=== PATIENT | male | born 1990 | race Caucasian/White ===

== ENCOUNTER 2018-12-07 11:39 | Inpatient (IN) | payer OTHER ==
[2018-12-07 12:15] VITALS: BMI 33.7
--- NOTE | 2018-12-07 13:05 | HP ---
COWS - Scale Resting Pulse: 2= [place] 101-120 Sweatin=Flushed/Facial Moisture Restless Observation: 1= Difficult to Sit Still Pupil Size: 0= Normal to Room Light Bone or Joint Aches: 2= Severe Diffuse Aches Runny Nose/ Eye Tearin= None GI Upset > 30mins: 0= None Tremor Observation: 0= None Yawning Observation: 0= None Anxiety or Irritability: 2=Irritable/Anxious Goose Flesh Skin: 0=Smooth Skin COWS Score: 9 CIWA Score Nausea/Vomitin-Mild Nausea/No Vomiting Muscle Tremors: 1-None Visible, but [place] Anxiety: 3 Agitation: 3 Paroxysmal Sweats: 2 Orientation: 0-Oriented Tacttile Disturbances: 0-None Auditory Disturbances: 0-None Visual Disturbances: 0-None Headache: 3-Moderate CIWA-Ar Total Score: 13 - Admission Criteria OASAS Guidelines: Admission for Medically Managed Detox: Requires at least one of the followin. CIWA greater than 12 2. Seizures within the past 24 hours 3. Delirium tremens within the past 24 hours 4. Hallucinations within the past 24 hours 5. Acute intervention needed for co occurring medical disorder 6. Acute intervention needed for co occurring psychiatric disorder 7. Severe withdrawal that cannot be handled at a lower level of care (continued vomiting, continued diarrhea, abnormal vital signs) requiring intravenous medication and/or fluids 8. Admission ROS [facility] Chief Complaint: detox from benzo and opioids Allergies/Adverse Reactions: Allergies Allergy/AdvReac Type Severity Reaction Status Date / Time No Known Allergies Allergy Verified 12/15/18 16:59 History of Present Illness: 28M w/ pmh of depression(seroquel, vistril), anxiety, PTSD here for detox from opioid and benzodiazpenes. Takes up to 120mg of oxycodone, 6-8mg of xanax. Last xanax(2mg) and oxycodone(60mg) was ~0300. Opioids were initally prescribed for Right shoulder injury at ~22y/o. Took medications recreationally for a few months then quit. Opioid use recurrence after Right foot 2nd digit traumatic amputation. Gets drugs from friends. Has had trouble with police due to criminal mischief. Plans to take a plea in Mar 2019 and be on probation for 3ys. Has tried detox in the past year been on methadone(up to 120mg); was on suboxone ~10d prior but was discharged w/o plan in place. Started using again 1 week prior due to financial stressors. Smokes 5cigs/daily. Endorses desire to use nicotine gum. Drinks ~5alcoholic drinks daily, for several months, had one beer this morning. - Ebola screening Have you traveled outside of the country in the last 21 days: No (N) Have you had contact with anyone from an Ebola affected area: No Have you been sick,other than usual withdrawal symptoms: No Do you have a fever: No - Review of Systems EENT: denies: Blurred Vision, Double Vision, Nose Congestion, Difficulty Swallowing Respiratory: denies: Cough, Wheezing Cardiac: denies: Chest Pain, Lightheadedness, Palpitations GI: denies: Constipated, Diarrhea, Nausea, Vomiting : denies: Burning, Dysuria, Urgency Musculoskeletal: reports: Back Pain Neuro: reports: Headache (frontal). denies: Tremors, Dizziness Endocrine: reports: [place] Psychiatric: reports: Anxious Patient History - Patient Surgical History Hx Orthopedic Surgery: Yes (Right foot, 2nd digit amputation) - Smoking Cessation Smoking history: Current every day smoker Have you smoked in the past 12 months: Yes Aproximately how many cigarettes per day: 5 Initiated information on smoking cessation: No - Substance & Tx. History Hx Alcohol Use: Yes (5 beers/alcohols daily) - Substances abused Alcohol Substance route: Oral Frequency: Daily Amount used: pint of Cognac Age of first use: 19 Date of last use: 12/07/18 Oxycontin Substance route: Oral Frequency: Daily Amount used: 120 mg Age of first use: 22 Date of last use: 12/06/18 Non-Rx Methadone Substance route: Oral Frequency: Daily Amount used: 110 mg Age of first use: 26 Date of last use: 12/04/18 Family Disease History - Family Disease History Other Family History: no significant contributory FH Admission Physical Exam S - Vital Signs Vital Signs: Vital Signs - 24 hr 12/07/18 12:02 Temperature 98.0 F Pulse Rate 106 H Respiratory 20 Rate Blood Pressure 141/92 - Physical General Appearance: Yes: Moderate Distress, Sweating (flushed with light perspiration), Anxious. No: Tremorous HEENTM: Yes: Within Normal Limits. No: Pale Conjunctivae R, Pale Conjunctivae L , Scleral Ictenus R, Scleral Ictenus L, Microcephalic Respiratory: Yes: Within Normal Limits, Lungs Clear. No: Chest Non-Tender, Decreased Breath Sounds, Labored Respiration, No Accessory Muscle Use Neck: Yes: Within Normal Limits, Supple, Trachea in good position Cardiology: Yes: Regular Rhythm, S1, S2, Tachycardia Abdominal: Yes: Non Tender, Soft. No: Guarding, Rebound, Tenderness, Surgical Scar Back: No: Vertebral Tenderness Musculoskeletal: Yes: full range of Motion Extremities: Yes: Other (Right foot, 2nd digit s/p amputation with healed scar) Neurological: Yes: Fully Oriented, Alert Integumentary: Yes: Dry, Warm Cleared for Admission [facility] - Detox or Rehab [facility] Level of Care: Medically Managed Detox Regimen/Protocol: Clonidine/Valium, Methadone/Valium Claeared for Rehab Admission: No Breathalyzer - Breathalyzer Breathalyzer: 0 Urine Drug Screen - Test Device Lot number: [id number] Expiration date: 09/08/20 - Control Is test valid?: Yes - Results Drug screen NEGATIVE: No Urine drug screen results: THC-Marijuana, OXY-Oxycodone, BZO-Benzodiazepines Inpatient Rehab Admission - Rehab Decision to Admit Inpatient rehab admission?: No
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
[2018-12-07] MEDS ORDERED: BISMUTH SUBSALICYLATE 262 MG/15 ML BTL PO PRN (13:55)
[2018-12-07] MEDS ORDERED: IBUPROFEN 400 MG TABLET (FP) PO PRN (13:55)
[2018-12-07] MEDS ORDERED: MAGNESIUM CITRATE 300 ML BOTTLE PO PRN (13:55)
[2018-12-07] MEDS ORDERED: MAGNESIUM HYDROX 2400MG/30ML ORAL SUSPENSION 30 ML CUP PO PRN (13:55)
[2018-12-07] MEDS ORDERED: ACETAMINOPHEN 325 MG TABLET (FP) PO PRN (13:55)
[2018-12-07] MEDS ORDERED: MENTHOL/PHENOL 1 EACH UD MM PRN (13:55)
[2018-12-07] MEDS ORDERED: MAG HYDROX/AL HYDROX/SIMETH 30 ML UNIT-DOSE CUP PO PRN (13:55)
[2018-12-07] MEDS ORDERED: METHADONE HCL 10 MG TABLET (FOR DETOX USE ONLY) PO ONE (13:57)
[2018-12-07] MEDS: diazePAM 5 MG TABLET PO SCH ×2 (15:24→22:10)
[2018-12-07] MEDS: cloNIDine HCL 0.1 MG TABLET PO PRN ×2 (15:24→22:09)
[2018-12-07] MEDS: diazePAM 5 MG TABLET PO PRN (17:59)
[2018-12-07] MEDS: METHOCARBAMOL 500 MG TABLET PO PRN (17:59)
[2018-12-07] MEDS: NICOTINE POLACRILEX 2 MG GUM BUC PRN (18:02)
[2018-12-07] MEDS: THIAMINE HCL 100 MG TABLET (FP) PO SCH (22:09)
[2018-12-07] MEDS: MELATONIN 5 MG TABLETS PO PRN (22:16)
[2018-12-08] MEDS: diazePAM 5 MG TABLET PO PRN ×3 (00:55→15:24)
[2018-12-08] MEDS: diazePAM 5 MG TABLET PO SCH ×3 (05:44→22:07)
[2018-12-08] MEDS ORDERED: METHADONE HCL 10 MG TABLET (FOR DETOX USE ONLY) PO ONE ×2 (08:27→08:36)
[2018-12-08] MEDS ORDERED: cloNIDine HCL 0.1 MG TABLET PO PRN (08:36)
[2018-12-08] MEDS: PRENATAL VITAMINS W/ FOLIC ACID TABLET (FP) PO SCH (09:13)
[2018-12-08] MEDS: NICOTINE POLACRILEX 2 MG GUM BUC PRN ×4 (09:14→22:09)
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
[2018-12-08 09:57] LABS: HEMOGLOBIN 15.5 GM/dL (11.7-16.9); MCH 29.7 pg (25.7-33.7); MCHC 33.6 g/dl (32.0-35.9); MEAN CELL VOLUME 88.4 fl (80-96); MEAN PLT VOLUME 11.9 fl (7.5-11.1); PLATELET COUNT 289 K/MM3 (134-434); RDW 13.6 % (11.9-15.9); WHITE BLOOD COUNT 8.2 K/mm3 (4.0-10.0)
[2018-12-08] MEDS ORDERED: METHADONE HCL 5 MG TABLET (FOR DETOX USE ONLY) PO ONE (10:00)
[2018-12-08 10:06] LABS: ALBUMIN 4.5 g/dl (3.4-5.0); BILIRUBIN,TOTAL 0.4 mg/dL (0.2-1); BLOOD UREA NITROGEN 12.7 mg/dL (7-18); CALCIUM 9.6 mg/dL (8.5-10.1); CREATININE 1.2 mg/dL (0.55-1.3); POTASSIUM 4.4 mmol/L (3.5-5.1); TOT PROT 7.9 g/dl (6.4-8.2)
[2018-12-08] MEDS: SERTRALINE HCL 50 MG TABLET (FP) PO SCH (10:39)
--- NOTE | 2018-12-08 12:44 | PN ---
[facility] CIWA - CIWA Score Nausea/Vomitin-No Nausea/No Vomiting Muscle Tremors: 3 Anxiety: 3 Agitation: 4-Moderately Restless Paroxysmal Sweats: 3 Orientation: 0-Oriented Tacttile Disturbances: 0-None Auditory Disturbances: 0-None Visual Disturbances: 0-None Headache: 0-None Present CIWA-Ar Total Score: 13 BHS COWS - Scale Resting Pulse: 1= [place] 81-100 Sweatin=Flushed/Facial Moisture Restless Observation: 1= Difficult to Sit Still Pupil Size: 0= Normal to Room Light Bone or Joint Aches: 2= Severe Diffuse Aches Runny Nose/ Eye Tearin= Runny Nose/Eyes GI Upset > 30mins: 1= Stomach Cramp Tremor Observation of Outstretched Hands: 2= Slight Tremor Visible Yawning Observation: 2= >3x During Session Anxiety or Irritability: 2=Irritable/Anxious Goose Flesh Skin: 0=Smooth Skin COWS Score: 15 BHS Progress Note (SOAP) Subjective: irritable agitation anxiety sweats restless chills interrupted sleep body aches Objective: 12/08/18 12:43 Vital Signs Temperature 97.5 F L 12/08/18 12:38 Pulse Rate 80 12/08/18 12:38 Respiratory Rate 18 12/08/18 12:38 Blood Pressure 96/61 12/08/18 12:38 O2 Sat by Pulse Oximetry (%) Laboratory Tests 12/08/18 12/08/18 12/08/18 07:30 07:30 07:30 WBC 8.2 RBC 5.20 Hgb 15.5 Hct 46.0 MCV 88.4 MCH 29.7 MCHC 33.6 RDW 13.6 Plt Count 289 MPV 11.9 H Sodium 137 Potassium 4.4 Chloride 101 Carbon Dioxide 28 Anion Gap 8 BUN 12.7 Creatinine 1.2 Est GFR (CKD-EPI)AfAm 96.15 Est GFR (CKD-EPI)NonAf 82.96 Random Glucose 65 L Calcium 9.6 Total Bilirubin 0.4 AST 12 L ALT 22 Alkaline Phosphatase 118 H Total Protein 7.9 Albumin 4.5 RPR Titer Nonreactive labs noted aaox3 ambulating no acute distress Assessment: 12/08/18 12:43 withdrawal sx Plan: continue detox with a modified increase of his methadone taper. pt in agreement increase fluids
[2018-12-08] MEDS: QUEtiapine FUMARATE 300 MG TABLET PO SCH (22:07)
[2018-12-08] MEDS: THIAMINE HCL 100 MG TABLET (FP) PO SCH (22:07)
[2018-12-09] MEDS: diazePAM 5 MG TABLET PO SCH ×2 (06:03→17:30)
[2018-12-09] MEDS: diazePAM 5 MG TABLET PO PRN ×3 (08:39→19:35)
[2018-12-09] MEDS ORDERED: METHADONE HCL 10 MG TABLET (FOR DETOX USE ONLY) ONE (09:35)
[2018-12-09] MEDS ORDERED: METHADONE HCL 5 MG TABLET (FOR DETOX USE ONLY) ONE (09:35)
[2018-12-09] MEDS ORDERED: METHADONE HCL 10 MG TABLET (FOR DETOX USE ONLY) PO ONE (10:00)
[2018-12-09] MEDS ORDERED: METHADONE (DETOX) 20 MG, METHADONE (DETOX) 5 MG PO ONE ×2 (10:00)
[2018-12-09] MEDS: PRENATAL VITAMINS W/ FOLIC ACID TABLET (FP) PO SCH (10:30)
[2018-12-09] MEDS: SERTRALINE HCL 50 MG TABLET (FP) PO SCH (10:30)
[2018-12-09] MEDS: cloNIDine HCL 0.1 MG TABLET PO PRN ×2 (10:41→16:39)
--- NOTE | 2018-12-09 10:55 | PN ---
S CIWA - CIWA Score Nausea/Vomitin-No Nausea/No Vomiting Muscle Tremors: 2 Anxiety: 3 Agitation: 2 Paroxysmal Sweats: 3 Orientation: 0-Oriented Tacttile Disturbances: 0-None Auditory Disturbances: 0-None Visual Disturbances: 0-None Headache: 0-None Present CIWA-Ar Total Score: 10 S COWS - Scale Resting Pulse: 0= [place] 80 or Below Sweatin= Beads of Sweat on Face Restless Observation: 1= Difficult to Sit Still Pupil Size: 0= Normal to Room Light Bone or Joint Aches: 2= Severe Diffuse Aches Runny Nose/ Eye Tearin= None GI Upset > 30mins: 0= None Tremor Observation of Outstretched Hands: 2= Slight Tremor Visible Yawning Observation: 1= 1-2x During Session Anxiety or Irritability: 2=Irritable/Anxious Goose Flesh Skin: 0=Smooth Skin COWS Score: 11 S Progress Note (SOAP) Subjective: c/o sweats, anxiety, headache, mild shakes, and interrupted sleep. Objective: 12/09/18 10:54 Vital Signs 12/09/18 12/09/18 12/09/18 03:30 07:14 09:43 Temperature 97.3 F L 97.5 F L Pulse Rate 61 79 Respiratory 18 18 18 Rate Blood Pressure 117/79 134/78 Lab Results WBC 8.2 K/mm3 (4.0-10.0) 12/08/18 07:30 RBC 5.20 M/mm3 (4.00-5.60) 12/08/18 07:30 Hgb 15.5 GM/dL (11.7-16.9) 12/08/18 07:30 Hct 46.0 % (35.4-49) 12/08/18 07:30 MCV 88.4 fl (80-96) 12/08/18 07:30 MCHC 33.6 g/dl (32.0-35.9) 12/08/18 07:30 RDW 13.6 % (11.9-15.9) 12/08/18 07:30 Plt Count 289 K/MM3 (134-434) 12/08/18 07:30 Sodium 137 mmol/L (136-145) 12/08/18 07:30 Potassium 4.4 mmol/L (3.5-5.1) 12/08/18 07:30 Chloride 101 mmol/L (98-107) 12/08/18 07:30 Carbon Dioxide 28 mmol/L (21-32) 12/08/18 07:30 Anion Gap 8 MMOL/L (8-16) 12/08/18 07:30 BUN 12.7 mg/dL (7-18) 12/08/18 07:30 Creatinine 1.2 mg/dL (0.55-1.3) 12/08/18 07:30 Random Glucose 65 mg/dL (74-106) L 12/08/18 07:30 Calcium 9.6 mg/dL (8.5-10.1) 12/08/18 07:30 Labs noted. Assessment: 12/09/18 10:54 AOX3, in no acute respiratory distress. Full ROM, ambulating in the unit. Mild withdrawal symptoms. Plan: continue detox.
[2018-12-09] MEDS: NICOTINE POLACRILEX 2 MG GUM BUC PRN ×3 (14:21→22:01)
[2018-12-09] MEDS ORDERED: COLLOIDAL OATMEAL 1 BAR EACH TP PRN (18:06)
[2018-12-09] MEDS: hydrOXYzine PAMOATE 25 MG CAPSULE (FP) PO PRN (19:35)
[2018-12-09] MEDS: THIAMINE HCL 100 MG TABLET (FP) PO SCH (22:00)
[2018-12-09] MEDS: QUEtiapine FUMARATE 300 MG TABLET PO SCH (22:00)
[2018-12-09] MEDS: ACETAMINOPHEN 325 MG TABLET (FP) PO PRN (22:13)
[2018-12-10] MEDS ORDERED: diazePAM 5 MG TABLET PO ONE (06:00)
[2018-12-10] MEDS ORDERED: METHADONE HCL 5 MG TABLET (FOR DETOX USE ONLY) PO ONE (06:00)
[2018-12-10] MEDS: diazePAM 5 MG TABLET PO PRN ×4 (07:28→20:21)
[2018-12-10] MEDS ORDERED: METHADONE HCL 10 MG TABLET (FOR DETOX USE ONLY) PO ONE ×2 (10:00)
[2018-12-10] MEDS: SERTRALINE HCL 50 MG TABLET (FP) PO SCH (10:05)
[2018-12-10] MEDS: PRENATAL VITAMINS W/ FOLIC ACID TABLET (FP) PO SCH (10:05)
[2018-12-10] MEDS: NICOTINE POLACRILEX 2 MG GUM BUC PRN ×2 (10:25→20:24)
[2018-12-10] MEDS: cloNIDine HCL 0.1 MG TABLET PO PRN ×2 (12:52→22:01)
--- NOTE | 2018-12-10 15:53 | PN ---
S CIWA - CIWA Score Nausea/Vomitin-No Nausea/No Vomiting Muscle Tremors: 2 Anxiety: 2 Agitation: 2 Paroxysmal Sweats: 2 Orientation: 0-Oriented Tacttile Disturbances: 0-None Auditory Disturbances: 0-None Visual Disturbances: 0-None Headache: 0-None Present CIWA-Ar Total Score: 8 BHS COWS - Scale Resting Pulse: 1= [place] 81-100 Sweatin= No chills or Flushing Restless Observation: 3= Extraneous Movement Pupil Size: 0= Normal to Room Light Bone or Joint Aches: 1= Mild Discomfort Runny Nose/ Eye Tearin= None GI Upset > 30mins: 1= Stomach Cramp Tremor Observation of Outstretched Hands: 2= Slight Tremor Visible Yawning Observation: 0= None Anxiety or Irritability: 1=Feels Anxious/Irritable Goose Flesh Skin: 0=Smooth Skin COWS Score: 9 BHS Progress Note (SOAP) Subjective: Headache, body ache, increased yawning, teary eyes, not feeling good because too much withdrawal symptoms and was doing lots of drugs before coming here and the prn was helping but it stopped. Patient requesting increased detox protocol. Objective: 12/10/18 15:52 Last Vital Signs Temp Pulse Resp BP Pulse Ox 98.2 F 103 H 18 138/85 12/10/18 13:47 12/10/18 13:47 12/10/18 13:47 12/10/18 13:47 Elevated b/p 138/85 (denies htn; most likely r/t withdrawal) Laboratory Tests 12/08/18 12/08/18 12/08/18 07:30 07:30 07:30 WBC 8.2 RBC 5.20 Hgb 15.5 Hct 46.0 MCV 88.4 MCH 29.7 MCHC 33.6 RDW 13.6 Plt Count 289 MPV 11.9 H Sodium 137 Potassium 4.4 Chloride 101 Carbon Dioxide 28 Anion Gap 8 BUN 12.7 Creatinine 1.2 Est GFR (CKD-EPI)AfAm 96.15 Est GFR (CKD-EPI)NonAf 82.96 Random Glucose 65 L Calcium 9.6 Total Bilirubin 0.4 AST 12 L ALT 22 Alkaline Phosphatase 118 H Total Protein 7.9 Albumin 4.5 RPR Titer Nonreactive Labs reviewed Assessment: 12/10/18 15:53 Withdrawal sxs Plan: Continue detox Encouraged PO water intake Valium 5mg PO x 1 dose tomorrow (for an additional day, last dose was today) Valium 10mg PO q4hr prn extended for one more day Continue to monitor Elevated b/p: continue clonidine prn
[2018-12-10] MEDS: METHOCARBAMOL 500 MG TABLET PO PRN (18:49)
[2018-12-10] MEDS: hydrOXYzine PAMOATE 25 MG CAPSULE (FP) PO PRN (18:50)
[2018-12-10] MEDS: MELATONIN 5 MG TABLETS PO PRN (22:01)
[2018-12-10] MEDS: THIAMINE HCL 100 MG TABLET (FP) PO SCH (22:01)
[2018-12-10] MEDS: QUEtiapine FUMARATE 300 MG TABLET PO SCH (22:02)
[2018-12-11] MEDS: diazePAM 5 MG TABLET PO PRN ×2 (06:10→11:43)
[2018-12-11] MEDS: NICOTINE POLACRILEX 2 MG GUM BUC PRN ×6 (06:12→22:14)
[2018-12-11] MEDS ORDERED: METHADONE HCL 5 MG TABLET (FOR DETOX USE ONLY) ONE (09:38)
[2018-12-11] MEDS ORDERED: METHADONE HCL 10 MG TABLET (FOR DETOX USE ONLY) ONE (09:38)
[2018-12-11] MEDS ORDERED: diazePAM 5 MG TABLET PO ONE (10:00)
[2018-12-11] MEDS ORDERED: METHADONE (DETOX) 10 MG, METHADONE (DETOX) 5 MG PO ONE ×2 (10:00)
[2018-12-11] MEDS: METHOCARBAMOL 500 MG TABLET PO PRN ×2 (10:13→17:04)
[2018-12-11] MEDS: PRENATAL VITAMINS W/ FOLIC ACID TABLET (FP) PO SCH (10:13)
[2018-12-11] MEDS: SERTRALINE HCL 50 MG TABLET (FP) PO SCH (10:32)
[2018-12-11] MEDS ORDERED: IBUPROFEN 600 MG TABLET (FP) PO PRN (11:56)
--- NOTE | 2018-12-11 11:56 | PN ---
[facility] CIWA - CIWA Score Nausea/Vomitin-No Nausea/No Vomiting Muscle Tremors: 2 Anxiety: 2 Agitation: 2 Paroxysmal Sweats: No Perspiration Orientation: 0-Oriented Tacttile Disturbances: 0-None Auditory Disturbances: 0-None Visual Disturbances: 0-None Headache: 0-None Present CIWA-Ar Total Score: 6 S COWS - Scale Resting Pulse: 0= [place] 80 or Below Sweatin= Chills/Flushing Restless Observation: 0= Sits Still Pupil Size: 0= Normal to Room Light Bone or Joint Aches: 2= Severe Diffuse Aches Runny Nose/ Eye Tearin= None GI Upset > 30mins: 0= None Tremor Observation of Outstretched Hands: 0= None Yawning Observation: 0= None Anxiety or Irritability: 1=Feels Anxious/Irritable Goose Flesh Skin: 0=Smooth Skin COWS Score: 4 [facility] Progress Note (SOAP) Subjective: sweats anxiety interrupted sleep Objective: 12/11/18 11:55 Vital Signs Temperature 97.9 F 12/11/18 10:00 Pulse Rate 69 12/11/18 10:00 Respiratory Rate 18 12/11/18 10:00 Blood Pressure 115/59 L 12/11/18 10:00 O2 Sat by Pulse Oximetry (%) aaox3 ambulating no acute distress Assessment: 12/11/18 11:55 mild withdrawal sx Plan: continue detox increase fluids visitril 25mg prn
[2018-12-11] MEDS: hydrOXYzine PAMOATE 25 MG CAPSULE (FP) PO PRN ×2 (14:59→22:13)
[2018-12-11] MEDS: ACETAMINOPHEN 325 MG TABLET (FP) PO PRN (17:04)
--- NOTE | 2018-12-11 18:51 | PN ---
Psychiatric Progress Note Vital Signs: Vital Signs Period Temp Pulse Resp BP Sys/Haney Pulse Ox Last 24 Hr 97.3 F-98.8 F 59-96 18-20 104-142/53-85 Date of Session: 12/11/18 Chief Complaint:: " I am withdrawing from benzos. My dose needs to be adjusted. " HPI: Day 5 of detoxification. Patient has been admitted to [address] [place] [address] for a withdrawal syndrome (opioid, alcohol and benzodiazepine). Doing well except for sporadic breakthrough symptoms. Mr Bridges reports that he approached nursing staff with request for an adjustment of his benzodiazepine protocol. Psychiatric consult was sought in response to patient's escalating hostility. ROS: Unremarkable. Current Medications: Active Medications Generic Name Dose Route Start Last Admin Trade Name Freq PRN Reason Stop Dose Admin Acetaminophen 650 mg 12/07/18 13:55 12/11/18 17:04 Tylenol - PO 650 mg Q6H PRN Administration PAIN LEVEL 4 - 6 Acetaminophen 650 mg 12/07/18 13:55 Tylenol - PO Q6H PRN FEVER Al Hydroxide/Mg Hydroxide 30 ml 12/07/18 13:55 Mylanta Oral Suspension - PO Q6H PRN DYSPEPSIA Bismuth Subsalicylate 30 ml 12/07/18 13:55 Pepto-Bismol Liquid - PO Q1H PRN DIARRHEA Colloidal Oatmeal 1 applic 12/09/18 18:06 12/09/18 18:17 Aveeno Soap - TP 1 applic DAILY PRN Administration HYGEINE Eucalyptus/Menthol/Phenol/Sorbitol 1 each 12/07/18 13:55 Cepastat Lozenge - MM 12/13/18 13:55 Q4H PRN SORE THROAT Hydroxyzine Pamoate 25 mg 12/07/18 13:55 12/11/18 14:59 Vistaril - PO 12/13/18 13:55 25 mg Q6H PRN Administration For Anxiety Ibuprofen 600 mg 12/11/18 11:56 Motrin - PO Q6H PRN PAIN LEVEL 4 - 6 Magnesium Citrate 300 ml 12/07/18 13:55 Citroma - PO Q48H PRN CONSTIPATION Magnesium Hydroxide 30 ml 12/07/18 13:55 Milk Of Magnesia - PO PRN PRN CONSTIPATION Melatonin 5 mg 12/07/18 13:55 12/10/18 22:01 Melatonin PO 5 mg HS PRN Administration INSOMNIA Methadone HCl 5 mg 12/13/18 06:00 Dolophine - PO 12/13/18 06:01 ONCE@0600 ONE Methadone HCl 10 mg 12/12/18 10:00 Dolophine - PO 12/12/18 10:01 ONCE ONE Methocarbamol 500 mg 12/07/18 13:55 12/11/18 17:04 Robaxin - PO 12/13/18 13:55 500 mg Q6H PRN Administration MUSCLE SPASMS Nicotine Polacrilex 2 mg 12/07/18 13:55 12/11/18 17:33 Nicorette Gum - BUC 2 mg Q2H PRN Administration NICOTINE REPLACEMENT RX Multivit/Folic Acid/Iron 1 tab 12/08/18 10:00 12/11/18 10:13 Vitamins (Sjr) - PO 1 tab DAILY ANA Administration Quetiapine Fumarate 300 mg 12/08/18 22:00 12/10/18 22:02 Seroquel - PO 300 mg HS ANA Administration Sertraline HCl 100 mg 12/08/18 10:15 12/11/18 10:32 Zoloft - PO 100 mg DAILY ANA Administration Thiamine HCl 100 mg 12/07/18 22:00 12/10/18 22:01 Vitamin B1 - PO 100 mg HS ANA Administration u Medication(s) Change(s): No changes. No clinical justification. Current Side Effect: No Lab tests ordered: No Lab tests reviewed: Yes Provider note:: Chart reviewed. Dr Florez's consult note of 12/08/18 : appreciated. Met with the patient. Noted as calm, conversant, clear about his issues, moderately anxious and appropriate. Mr Bridges indicates that he " might need some doses of valium " to cover intermittent episodes of anxiety and he would like the doctors to address that issue. Patient expresses the feeling that his complaint was not validated and he got angry. " They behaved as if I was lying to get more medicine, that my complaint was not true. So, I got angry. " Patient was reassured by this filing writer. Detoxification protocol (opioid + benzodiazepine) was explained to the patient. Made aware that his medical issues (withdrawal) are taken seriously and that the medical attending will be contacted for management. Mr Bridges apologized for his behavior and promised that he will use a more mature approach to discuss his symptoms with the nursing staff. Patient is psychiatrically stable. Not a danger to self or others. Willing to continue his care at [facility] [address]. Baseline mental status. Discussed with nurses on duty. Total face to face time:: 35 Mental Status Exam - Mental Status Exam Alert and Oriented to: Time, Place, Person Cognitive Function: Good Patient Appearance: Well Groomed (obese, tattoos on chest, upper extremities) Mood: Angry (initially angry; calmed down after receiving explanation from this filing writer) Affect: Appropriate, Normal Range Patient Behavior: Appropriate (friendly), Cooperative Speech Pattern: Clear, Appropriate Voice Loudness: Normal Thought Process: Intact, Goal Oriented Thought Disorder: Not Present Hallucinations: Denies Suicidal Ideation: Denies Homicidal Ideation: Denies Insight/Judgement: Fair Sleep: Well Appetite: Good Muscle strength/Tone: Normal Gait/Station: Normal Psychiatric Treatment Plan - Problem List (1) Alcohol dependence, uncomplicated Current Visit: Yes Comment: . (2) Sedative, hypnotic or anxiolytic dependence, uncomplicated Current Visit: Yes Comment: . (3) Uncomplicated opioid dependence Current Visit: Yes Comment: . (4) Anxiety disorder Current Visit: Yes Comment: . (5) Nicotine dependence Current Visit: Yes Comment: . (6) PTSD (post-traumatic stress disorder) Current Visit: Yes Comment: .
--- NOTE | 2018-12-11 19:22 | PN ---
[facility] Progress Note Note: Vital Signs Temperature 97.7 F 12/11/18 17:20 Pulse Rate 96 H 12/11/18 17:20 Respiratory Rate 18 12/11/18 17:20 Blood Pressure 129/69 12/11/18 17:20 O2 Sat by Pulse Oximetry (%) Patient requested additional valium for withdrawal sx , benzo ramin d/c yesterday but received an additional dose today, patient methadone ramin extended for two additional days. Patient requested increase in zoloft dose from 100 mg qd to 100 mg BID. Patient had two psych consults during his detox stay and rec: xoloft 100 mg qd and seroquel 300 mg HS. Patient Aox3, no acute distress, full ROM, ambulating in the unit, very anxious and agitated during eval. Gabapentin 100 mg TID offered to managed withdrawal sx. Increase PO fluids continue to monitor
[2018-12-11] MEDS: QUEtiapine FUMARATE 300 MG TABLET PO SCH (22:11)
[2018-12-11] MEDS: GABAPENTIN 100 MG CAPSULE (FP) PO SCH (22:11)
[2018-12-11] MEDS: THIAMINE HCL 100 MG TABLET (FP) PO SCH (22:11)
[2018-12-11] MEDS: MELATONIN 5 MG TABLETS PO PRN (22:14)
[2018-12-12] MEDS: GABAPENTIN 100 MG CAPSULE (FP) PO SCH ×3 (05:17→22:01)
--- NOTE | 2018-12-12 09:13 | PN ---
[facility] CIWA - CIWA Score Nausea/Vomitin-No Nausea/No Vomiting Muscle Tremors: 2 Anxiety: 2 Agitation: 1-Slight > Activity Paroxysmal Sweats: 2 Orientation: 0-Oriented Tacttile Disturbances: 0-None Auditory Disturbances: 0-None Visual Disturbances: 0-None Headache: 0-None Present CIWA-Ar Total Score: 7 [facility] COWS - Scale Resting Pulse: 1= [place] 81-100 Sweatin= Chills/Flushing Restless Observation: 1= Difficult to Sit Still Pupil Size: 0= Normal to Room Light Bone or Joint Aches: 1= Mild Discomfort Runny Nose/ Eye Tearin= None GI Upset > 30mins: 0= None Tremor Observation of Outstretched Hands: 1= Tremor [place], Not Seen Yawning Observation: 0= None Anxiety or Irritability: 1=Feels Anxious/Irritable Goose Flesh Skin: 0=Smooth Skin COWS Score: 6 BHS Progress Note (SOAP) Subjective: anxiety sweats irritable interrupted sleep Objective: 12/12/18 09:12 Vital Signs Temperature 96.8 F L 12/12/18 06:00 Pulse Rate 74 12/12/18 06:00 Respiratory Rate 18 12/12/18 06:00 Blood Pressure 112/60 12/12/18 06:00 O2 Sat by Pulse Oximetry (%) pt is aaox3 ambulating no acute distress Assessment: 12/12/18 09:12 mild withdrawals Plan: continue detox increase fluids valium 10mg prn until tomorrow d/c in am
[2018-12-12] MEDS: SERTRALINE HCL 50 MG TABLET (FP) PO SCH (09:45)
[2018-12-12] MEDS: diazePAM 5 MG TABLET PO PRN ×3 (09:45→19:42)
[2018-12-12] MEDS: PRENATAL VITAMINS W/ FOLIC ACID TABLET (FP) PO SCH (09:45)
[2018-12-12] MEDS ORDERED: METHADONE HCL 10 MG TABLET (FOR DETOX USE ONLY) PO ONE ×2 (10:00)
[2018-12-12] MEDS: hydrOXYzine PAMOATE 25 MG CAPSULE (FP) PO PRN (12:37)
[2018-12-12] MEDS: NICOTINE POLACRILEX 4 MG GUM BUC PRN ×3 (12:38→22:03)
[2018-12-12] MEDS: METHOCARBAMOL 500 MG TABLET PO PRN (19:42)
[2018-12-12] MEDS: ACETAMINOPHEN 325 MG TABLET (FP) PO PRN (21:03)
[2018-12-12] MEDS: QUEtiapine FUMARATE 300 MG TABLET PO SCH (22:01)
[2018-12-12] MEDS: THIAMINE HCL 100 MG TABLET (FP) PO SCH (22:01)
[2018-12-13] MEDS: diazePAM 5 MG TABLET PO PRN ×2 (00:01→05:31)
[2018-12-13] MEDS: GABAPENTIN 100 MG CAPSULE (FP) PO SCH (05:29)
[2018-12-13] MEDS ORDERED: METHADONE HCL 5 MG TABLET (FOR DETOX USE ONLY) PO ONE ×2 (06:00)
[2018-12-13 09:12] VITALS: BP 121/76; PULSE 107; TEMP 98.2
[2018-12-13] MEDS: PRENATAL VITAMINS W/ FOLIC ACID TABLET (FP) PO SCH (09:15)
[2018-12-13] MEDS: SERTRALINE HCL 50 MG TABLET (FP) PO SCH (09:16)
--- NOTE | 2018-12-13 09:35 | DS ---
[facility] Detox Discharge Summary Admission Date: 12/07/18 Discharge Date: 12/13/18 - History Present History: Alcohol Dependence, Opioid Dependence, Sedative Dependence - Physical Exam Results Vital Signs: Vital Signs Temperature 98.2 F 12/13/18 09:11 Pulse Rate 107 H 12/13/18 09:11 Respiratory Rate 18 12/13/18 09:11 Blood Pressure 121/76 12/13/18 09:11 O2 Sat by Pulse Oximetry (%) Pertinent Admission Physical Exam Findings: pt arrived in withdrawal sx Laboratory Tests 12/08/18 12/08/18 12/08/18 07:30 07:30 07:30 WBC 8.2 RBC 5.20 Hgb 15.5 Hct 46.0 MCV 88.4 MCH 29.7 MCHC 33.6 RDW 13.6 Plt Count 289 MPV 11.9 H Sodium 137 Potassium 4.4 Chloride 101 Carbon Dioxide 28 Anion Gap 8 BUN 12.7 Creatinine 1.2 Est GFR (CKD-EPI)AfAm 96.15 Est GFR (CKD-EPI)NonAf 82.96 Random Glucose 65 L Calcium 9.6 Total Bilirubin 0.4 AST 12 L ALT 22 Alkaline Phosphatase 118 H Total Protein 7.9 Albumin 4.5 RPR Titer Nonreactive today pt is aaox3 ambulating no acute distress no s/s of withdrawals - Treatment Hospital Course: Detox Protocol Followed, Detoxed Safely, Responded well, Discharged Condition Good, Rehab Referral Accepted Patient has Accepted a Rehab Referral to: pt declined rehab; referral provided - Medication Discharge Medications: Ambulatory Orders Quetiapine Fumarate [Seroquel] 300 mg PO HS 12/07/18 hydrOXYzine PAMOATE [Vistaril -] 50 mg PO TID 12/07/18 - Diagnosis (1) Alcohol dependence, uncomplicated Current Visit: Yes Status: Chronic (2) Sedative, hypnotic or anxiolytic dependence, uncomplicated Current Visit: Yes Status: Chronic (3) Uncomplicated opioid dependence Current Visit: Yes Status: Chronic (4) Anxiety disorder Current Visit: Yes Status: Chronic (5) Nicotine dependence Current Visit: Yes Status: Chronic Qualifiers: Nicotine product type: cigarettes Substance use status: uncomplicated Qualified Code(s): F17.210 - Nicotine dependence, cigarettes, uncomplicated (6) Traumatic amputation of second toe of right foot Current Visit: Yes Status: Resolved (7) PTSD (post-traumatic stress disorder) Current Visit: Yes Status: Ruled-out - AMA Did Patient Leave Against Medical Advice: No
== END 2018-12-13 10:06 | disposition home or self-care (01) | DRG 773 ==
LOC: YASAS 11:39 → Y6N 14:08
PROVIDERS: ADMIT Surgery; ATTEND Surgery
PROC: HZ2ZZZZ Detoxification Services for Substance Abuse Treatment (ICD-10-PCS; principal; 2018-12-07)
DX: F11.23 Opioid dependence with withdrawal (principal); F10.230 Alcohol dependence with withdrawal, uncomplicated; F13.230 Sedative, hypnotic or anxiolytic dependence with withdrawal, uncomplicated; F17.210 Nicotine dependence, cigarettes, uncomplicated; F41.9 Anxiety disorder, unspecified; F43.10 Post-traumatic stress disorder, unspecified; I10 Essential (primary) hypertension; Z89.421 Acquired absence of other right toe(s)
CPT/HCPCS: 36415; 80053; 85027; 86480; 86593; J0735

== ENCOUNTER 2018-12-15 12:12 | Inpatient (IN) | payer OTHER ==
[2018-12-15 17:07] VITALS: BMI 34.8
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
[2018-12-15] MEDS ORDERED: MAG HYDROX/AL HYDROX/SIMETH 30 ML UNIT-DOSE CUP PO PRN (18:39)
[2018-12-15] MEDS ORDERED: METHADONE HCL 10 MG TABLET (FOR DETOX USE ONLY) PO ONE (18:39)
[2018-12-15] MEDS ORDERED: MENTHOL/PHENOL 1 EACH UD MM PRN (18:39)
[2018-12-15] MEDS ORDERED: MAGNESIUM CITRATE 300 ML BOTTLE PO PRN (18:39)
[2018-12-15] MEDS ORDERED: MELATONIN 5 MG TABLETS PO PRN (18:39)
[2018-12-15] MEDS ORDERED: BISMUTH SUBSALICYLATE 524 MG/30 ML UD PO PRN (18:39)
[2018-12-15] MEDS ORDERED: MAGNESIUM HYDROX 2400MG/30ML ORAL SUSPENSION 30 ML CUP PO PRN (18:39)
[2018-12-15] MEDS ORDERED: IBUPROFEN 400 MG TABLET (FP) PO PRN (18:39)
[2018-12-15] MEDS ORDERED: ACETAMINOPHEN 325 MG TABLET (FP) PO PRN (18:39)
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
[2018-12-15] MEDS: THIAMINE HCL 100 MG TABLET (FP) PO SCH (22:13)
[2018-12-15] MEDS: diazePAM 5 MG TABLET PO SCH (22:13)
[2018-12-15] MEDS: QUEtiapine FUMARATE 300 MG TABLET PO SCH (22:13)
[2018-12-16] MEDS: diazePAM 5 MG TABLET PO SCH ×3 (05:43→22:38)
[2018-12-16] MEDS: diazePAM 5 MG TABLET PO PRN ×3 (07:47→17:00)
[2018-12-16] MEDS ORDERED: METHADONE HCL 10 MG TABLET (FOR DETOX USE ONLY) ONE (09:44)
[2018-12-16] MEDS ORDERED: METHADONE HCL 5 MG TABLET (FOR DETOX USE ONLY) ONE (09:44)
[2018-12-16] MEDS ORDERED: METHADONE (DETOX) 20 MG, METHADONE (DETOX) 5 MG PO ONE (10:00)
[2018-12-16] MEDS: PRENATAL VITAMINS W/ FOLIC ACID TABLET (FP) PO SCH (10:35)
--- NOTE | 2018-12-16 10:40 | PN ---
[facility] - CIWA Score Nausea/Vomitin-No Nausea/No Vomiting Muscle Tremors: 2 Anxiety: 3 Agitation: 2 Paroxysmal Sweats: 3 Orientation: 0-Oriented Tacttile Disturbances: 0-None Auditory Disturbances: 0-None Visual Disturbances: 0-None Headache: 0-None Present CIWA-Ar Total Score: 10 [facility] COWS - Scale Resting Pulse: 0= [place] 80 or Below Sweatin= Beads of Sweat on Face Restless Observation: 1= Difficult to Sit Still Pupil Size: 0= Normal to Room Light Bone or Joint Aches: 1= Mild Discomfort Runny Nose/ Eye Tearin= None GI Upset > 30mins: 0= None Tremor Observation of Outstretched Hands: 2= Slight Tremor Visible Yawning Observation: 1= 1-2x During Session Anxiety or Irritability: 2=Irritable/Anxious Goose Flesh Skin: 0=Smooth Skin COWS Score: 10 [facility] Progress Note (SOAP) Subjective: c/o sweats, anxiety, irritability, and interrupted sleep. Objective: 12/16/18 10:40 Vital Signs 12/16/18 12/16/18 12/16/18 03:30 06:00 09:01 Temperature 95.5 F L 98.3 F Pulse Rate 78 76 Respiratory 18 18 18 Rate Blood Pressure 125/53 L 102/50 L Labs noted. Assessment: 12/16/18 10:40 AOX3, in no acute distress. Full ROM, ambulating in the unit. Withdrawal symptoms. Plan: continue detox.
[2018-12-16] MEDS: cloNIDine HCL 0.1 MG TABLET PO PRN ×2 (12:21→22:38)
[2018-12-16] MEDS: hydrOXYzine PAMOATE 25 MG CAPSULE (FP) PO PRN (15:34)
[2018-12-16] MEDS ORDERED: COLLOIDAL OATMEAL 1 BAR EACH TP PRN (17:13)
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
[2018-12-16] MEDS: NICOTINE POLACRILEX 2 MG GUM BUC PRN ×2 (18:14→22:39)
[2018-12-16] MEDS: THIAMINE HCL 100 MG TABLET (FP) PO SCH (22:36)
[2018-12-16] MEDS: QUEtiapine FUMARATE 300 MG TABLET PO SCH (22:38)
[2018-12-17] MEDS: diazePAM 5 MG TABLET PO PRN ×4 (00:05→19:41)
[2018-12-17] MEDS: diazePAM 5 MG TABLET PO SCH ×2 (05:42→17:31)
[2018-12-17] MEDS ORDERED: METHADONE HCL 10 MG TABLET (FOR DETOX USE ONLY) PO ONE (10:00)
[2018-12-17] MEDS: PRENATAL VITAMINS W/ FOLIC ACID TABLET (FP) PO SCH (10:51)
[2018-12-17] MEDS: SERTRALINE HCL 50 MG TABLET (FP) PO SCH (10:51)
--- NOTE | 2018-12-17 14:14 | PN ---
[facility] CIWA - CIWA Score Nausea/Vomitin-Mild Nausea/No Vomiting Muscle Tremors: 4-Moderate,w/Arms Extend Anxiety: 4-Mod. Anxious/Guarded Agitation: 4-Moderately Restless Paroxysmal Sweats: 3 Orientation: 0-Oriented Tacttile Disturbances: 0-None Auditory Disturbances: 0-None Visual Disturbances: 0-None Headache: 0-None Present CIWA-Ar Total Score: 16 S COWS - Scale Resting Pulse: 1= [place] 81-100 Sweatin= Chills/Flushing Restless Observation: 1= Difficult to Sit Still Pupil Size: 0= Normal to Room Light Bone or Joint Aches: 1= Mild Discomfort Runny Nose/ Eye Tearin= Runny Nose/Eyes GI Upset > 30mins: 2= Nausea/Diarrhea Tremor Observation of Outstretched Hands: 2= Slight Tremor Visible Yawning Observation: 0= None Anxiety or Irritability: 2=Irritable/Anxious Goose Flesh Skin: 0=Smooth Skin COWS Score: 12 [facility] Progress Note (SOAP) Subjective: Sweating, headache, tremor, chills, diarrhea, body ache, interrupted sleep Objective: 12/17/18 14:12 Last Vital Signs Temp Pulse Resp BP Pulse Ox 97.7 F 91 H 18 129/82 12/17/18 13:02 12/17/18 13:02 12/17/18 13:02 12/17/18 13:02 No admission lab result available Lab results from 12/08/18 noted Assessment: 12/17/18 14:14 Withdrawal sxs Plan: Continue detox Encouraged PO water intake
[2018-12-17] MEDS: hydrOXYzine PAMOATE 25 MG CAPSULE (FP) PO PRN (14:43)
[2018-12-17] MEDS: cloNIDine HCL 0.1 MG TABLET PO PRN ×2 (14:53→17:32)
[2018-12-17] MEDS: NICOTINE POLACRILEX 2 MG GUM BUC PRN (17:47)
[2018-12-17] MEDS: THIAMINE HCL 100 MG TABLET (FP) PO SCH (22:09)
[2018-12-17] MEDS: QUEtiapine FUMARATE 300 MG TABLET PO SCH (22:10)
[2018-12-17] MEDS: ACETAMINOPHEN 325 MG TABLET (FP) PO PRN (22:10)
[2018-12-18] MEDS ORDERED: diazePAM 5 MG TABLET PO ONE (06:00)
--- NOTE | 2018-12-18 08:57 | PN ---
[facility] CIWA - CIWA Score Nausea/Vomitin-No Nausea/No Vomiting Muscle Tremors: 3 Anxiety: 2 Agitation: 2 Paroxysmal Sweats: 1-Minimal Palms Moist Orientation: 0-Oriented Tacttile Disturbances: 0-None Auditory Disturbances: 0-None Visual Disturbances: 0-None Headache: 2-Mild CIWA-Ar Total Score: 10 [facility] COWS - Scale Resting Pulse: 0= [place] 80 or Below Sweatin= Chills/Flushing Restless Observation: 1= Difficult to Sit Still Pupil Size: 0= Normal to Room Light Bone or Joint Aches: 1= Mild Discomfort Runny Nose/ Eye Tearin= None GI Upset > 30mins: 1= Stomach Cramp Tremor Observation of Outstretched Hands: 2= Slight Tremor Visible Yawning Observation: 0= None Anxiety or Irritability: 1=Feels Anxious/Irritable Goose Flesh Skin: 0=Smooth Skin COWS Score: 7 [facility] Progress Note (SOAP) Subjective: Patient is still in some mild to moderate withdrawal symptoms. Objective: 12/18/18 08:55 BP:90/50 P:71 R:18 T:96.6 12/18/18 08:55 Labs still pending. Assessment: 12/18/18 08:55 1. Opioid and Alcohol Dependence with uncomplicated withdrawals. Plan: 1. Withdrawal symptoms are improving. Encouraged to drink more fluids and increase PO intake. Assured patient that he will feel better as detox protocol progresses.
[2018-12-18] MEDS ORDERED: METHADONE HCL 10 MG TABLET (FOR DETOX USE ONLY) ONE (09:42)
[2018-12-18] MEDS ORDERED: METHADONE HCL 5 MG TABLET (FOR DETOX USE ONLY) ONE (09:43)
[2018-12-18] MEDS ORDERED: METHADONE (DETOX) 10 MG, METHADONE (DETOX) 5 MG PO ONE (10:00)
[2018-12-18] MEDS: SERTRALINE HCL 50 MG TABLET (FP) PO SCH (12:03)
[2018-12-18] MEDS: diazePAM 5 MG TABLET PO PRN ×3 (12:08→20:54)
[2018-12-18] MEDS: PRENATAL VITAMINS W/ FOLIC ACID TABLET (FP) PO SCH (12:09)
[2018-12-18] MEDS: ACETAMINOPHEN 325 MG TABLET (FP) PO PRN (17:13)
[2018-12-18] MEDS: hydrOXYzine PAMOATE 25 MG CAPSULE (FP) PO PRN (20:54)
[2018-12-18] MEDS: QUEtiapine FUMARATE 300 MG TABLET PO SCH (22:08)
[2018-12-18] MEDS: THIAMINE HCL 100 MG TABLET (FP) PO SCH (22:08)
--- NOTE | 2018-12-19 09:53 | PN ---
[facility] CIWA - CIWA Score Nausea/Vomitin-Mild Nausea/No Vomiting Muscle Tremors: 1-None Visible, but [place] Anxiety: 2 Agitation: 2 Paroxysmal Sweats: No Perspiration Orientation: 0-Oriented Tacttile Disturbances: 0-None Auditory Disturbances: 0-None Visual Disturbances: 0-None Headache: 1-Very Mild CIWA-Ar Total Score: 7 S COWS - Scale Resting Pulse: 0= [place] 80 or Below Sweatin= Chills/Flushing Restless Observation: 1= Difficult to Sit Still Pupil Size: 1= Pupils >than Normal Bone or Joint Aches: 1= Mild Discomfort Runny Nose/ Eye Tearin= Nasal Congestion GI Upset > 30mins: 1= Stomach Cramp Tremor Observation of Outstretched Hands: 1= Tremor [place], Not Seen Yawning Observation: 1= 1-2x During Session Anxiety or Irritability: 2=Irritable/Anxious Goose Flesh Skin: 0=Smooth Skin COWS Score: 10 [facility] Progress Note (SOAP) Subjective: alert,irritable,anxious,interrupted sleep Objective: 12/19/18 09:52 Vital Signs Temperature 97.8 F 12/19/18 09:34 Pulse Rate 76 12/19/18 09:34 Respiratory Rate 18 12/19/18 09:34 Blood Pressure 113/54 L 12/19/18 09:34 O2 Sat by Pulse Oximetry (%) Assessment: 12/19/18 09:53 withdrawal symptom Plan: continue detox methadone and valium regimen,discharge in am
[2018-12-19] MEDS ORDERED: METHADONE HCL 10 MG TABLET (FOR DETOX USE ONLY) PO ONE (10:00)
[2018-12-19] MEDS: SERTRALINE HCL 50 MG TABLET (FP) PO SCH (10:08)
[2018-12-19] MEDS: PRENATAL VITAMINS W/ FOLIC ACID TABLET (FP) PO SCH (10:09)
[2018-12-19] MEDS: ACETAMINOPHEN 325 MG TABLET (FP) PO PRN ×2 (11:09→18:14)
[2018-12-19] MEDS: diazePAM 5 MG TABLET PO PRN ×2 (12:03→18:14)
[2018-12-19] MEDS: hydrOXYzine PAMOATE 25 MG CAPSULE (FP) PO PRN (12:05)
--- NOTE | 2018-12-19 13:50 | PN ---
[facility] Progress Note Note: complained of toothache upper left,anbisol ordered,anxious,vistaril 50 mgs po q4hrs prn for anxiety
[2018-12-19] MEDS: BENZOCAINE 20 % GEL TUBE MM PRN (18:17)
[2018-12-19] MEDS: NICOTINE POLACRILEX 2 MG GUM BUC PRN (18:35)
[2018-12-19 20:30] VITALS: TEMP 96.6
[2018-12-19] MEDS: QUEtiapine FUMARATE 300 MG TABLET PO SCH (22:17)
[2018-12-19] MEDS: THIAMINE HCL 100 MG TABLET (FP) PO SCH (22:17)
[2018-12-19] MEDS: hydrOXYzine PAMOATE 50 MG CAPSULE (FP) PO PRN (22:17)
[2018-12-19] MEDS: METHOCARBAMOL 500 MG TABLET PO PRN (22:18)
[2018-12-20] MEDS: hydrOXYzine PAMOATE 50 MG CAPSULE (FP) PO PRN (05:34)
[2018-12-20] MEDS: METHOCARBAMOL 500 MG TABLET PO PRN (05:34)
[2018-12-20] MEDS: ACETAMINOPHEN 325 MG TABLET (FP) PO PRN (05:35)
[2018-12-20] MEDS: BENZOCAINE 20 % GEL TUBE MM PRN (05:38)
[2018-12-20] MEDS ORDERED: METHADONE HCL 5 MG TABLET (FOR DETOX USE ONLY) PO ONE (06:00)
[2018-12-20 07:21] VITALS: BP 130/68; PULSE 73
--- NOTE | 2018-12-20 09:14 | DS ---
[facility] Detox Discharge Summary Admission Date: 12/15/18 Discharge Date: 12/20/18 - History Present History: Alcohol Dependence, Opioid Dependence, Sedative Dependence - Physical Exam Results Vital Signs: Vital Signs Temperature 96.6 F L 12/20/18 07:20 Pulse Rate 73 12/20/18 07:20 Respiratory Rate 18 12/20/18 07:20 Blood Pressure 130/68 12/20/18 07:20 O2 Sat by Pulse Oximetry (%) Pertinent Admission Physical Exam Findings: pt arrived in withdrawals today pt is aaox3 no s/s of withdrawals - Treatment Hospital Course: Detox Protocol Followed, Detoxed Safely, Responded well, Discharged Condition Good, Rehab Referral Accepted Patient has Accepted a Rehab Referral to: pt declined rehab; referral provided - Diagnosis (1) Alcohol dependence, uncomplicated Current Visit: Yes Status: Chronic (2) History of posttraumatic stress disorder (PTSD) Current Visit: Yes Status: Chronic (3) Nicotine dependence Current Visit: Yes Status: Chronic Qualifiers: Nicotine product type: cigarettes Substance use status: uncomplicated Qualified Code(s): F17.210 - Nicotine dependence, cigarettes, uncomplicated (4) Non-compliance Current Visit: Yes Status: Chronic (5) Sedative, hypnotic or anxiolytic dependence, uncomplicated Current Visit: Yes Status: Chronic (6) Substance induced mood disorder Current Visit: Yes Status: Chronic (7) Uncomplicated opioid dependence Current Visit: Yes Status: Chronic (8) Personality disorder, unspecified Current Visit: Yes Status: Suspected (9) PTSD (post-traumatic stress disorder) Current Visit: Yes Status: Ruled-out (10) Anxiety disorder Current Visit: No Status: Chronic (11) Traumatic amputation of second toe of right foot Current Visit: No Status: Resolved - AMA Did Patient Leave Against Medical Advice: No
== END 2018-12-20 09:10 | disposition home or self-care (01) | DRG 773 ==
LOC: YASAS 12:12 → Y6N 19:10
PROVIDERS: ADMIT Surgery; ATTEND Surgery
PROC: HZ2ZZZZ Detoxification Services for Substance Abuse Treatment (ICD-10-PCS; principal; 2018-12-15)
DX: F11.23 Opioid dependence with withdrawal (principal); F10.230 Alcohol dependence with withdrawal, uncomplicated; F13.230 Sedative, hypnotic or anxiolytic dependence with withdrawal, uncomplicated; F17.210 Nicotine dependence, cigarettes, uncomplicated; F19.24 Other psychoactive substance dependence with psychoactive substance-induced mood disorder; F60.9 Personality disorder, unspecified; F43.10 Post-traumatic stress disorder, unspecified; F41.9 Anxiety disorder, unspecified; K08.89 Other specified disorders of teeth and supporting structures; Z89.421 Acquired absence of other right toe(s); Z91.19 Patient's noncompliance with other medical treatment and regimen
CPT/HCPCS: J0735

== ENCOUNTER 2019-03-01 16:02 | Emergency (ER) | payer OTHER ==
[2019-03-01 16:07] VITALS: BMI 32.5
[2019-03-01] MEDS ORDERED: diazePAM 5 MG TABLET PO ONE (18:31)
--- NOTE | 2019-03-01 18:35 | PDOC ---
Documentation entered by Reuben Chin SCRIBE, acting as scribe for Popeye Bradshaw MD. Popeye Bradshaw MD: This documentation has been prepared by the Giuseppe storey Daniel, SCRIBE, under my direction and personally reviewed by me in its entirety. I confirm that the documentation accurately reflects all work, treatment, procedures, and medical decision making performed by me. Attending Attestation - Resident Resident Name: GabeParveen - ED Attending Attestation I have performed the following: I have examined & evaluated the patient, The case was reviewed & discussed with the resident, I agree w/resident's findings & plan, Exceptions are as noted - HPI HPI: 03/01/19 18:28 The patient is a 28 year old male with a past medical history of anxiety and prior substance abuse here today for evaluation of anxiety. The patient reports that he has been feeling anxious for the past several weeks but states that it has been worse today. He states that he had a panic attack today, but it has subsided. He notes recently having a poor appetite and getting poor sleep. Denies SI/HI/AVH. Patient states that he took a percocet today with no improvement in his symptoms. Does not currently follow with psych, not on any meds. Patient denies headache, lightheadedness. Denies fever, chills. Denies chest pain, SOB. Denies nausea, vomiting, diarrhea, abdominal pain. Allergies: NKA - Physicial Exam PE: 03/01/19 18:28 GENERAL: Awake, alert, and fully oriented, in no acute distress. HEAD: No signs of trauma EYES: PERRLA, EOMI, sclera anicteric, conjunctiva clear ENT: Auricles normal inspection, hearing grossly normal, nares patent, oropharynx clear without exudates. Moist mucosa NECK: Nontender, no stepoffs, Normal ROM, supple, no lymphadenopathy, JVD, or masses LUNGS: Breath sounds equal, clear to auscultation bilaterally. No wheezes, and no crackles HEART: Regular rate and rhythm, normal S1 and S2, no murmurs, rubs or gallops ABDOMEN: Soft, nontender, normoactive bowel sounds. No guarding, no rebound. No masses EXTREMITIES: Normal range of motion, no edema. No clubbing or cyanosis. No cords, erythema, or tenderness NEUROLOGICAL: Cranial nerves II through XII intact. 5/5 strength and sensation in all extremities, Normal speech, normal gait, normal cerebellar function SKIN: Warm, Dry, normal turgor, no rashes or lesions noted. - Medical Decision Making 03/01/19 18:37 28 M with anxiety. Vitals normal, exam unremarkable. - EKG - PO valium - DC with psych referral Pt is well appearing, with normal vitals. Clinically stable for DC at this time. I discussed the physical exam findings, ancillary test results and final diagnoses with the patient. I answered all of the patient's questions. The patient was satisfied with the care received and felt comfortable with the discharge plan and treatment plan. The patient agrees to follow up with the primary care physician within 24-72 hours.
[2019-03-01] MEDS ORDERED: diazePAM 5 MG TABLET ONE (18:43)
--- NOTE | 2019-03-01 18:58 | PDOC ---
History of Present Illness - General Chief Complaint: Psychiatric Stated Complaint: ANXIETY Time Seen by Provider: 03/01/19 17:30 - History of Present Illness Initial Comments: 03/01/19 18:39 HPI: 28 y/o with hx of anxiety and opiate prescription abuse s/p rehab presenting with several weeks of anxiety that worsened today. He states he feels very anxious and cant focus. He had symptoms of chest tightness, palpitations, with feelings of heavy breathing. He reports having these symptoms in the past in required psych admission, however he does not feel he needs admission currently. He wants someone to talk to and does not want to go back to drugs. He reports sleeplessness, fatigure, psychomotor agitation, poor appetite. He has guilt for being addicted to opiates in the past. He reports good support network. He denies SI/HI or access. He took 1 percocet yesterday to help but didnt feel relief. PMHx: as noted above ROS: as noted SHx: Denies tobacco use; no alcohol use; prescription opiates Allergies: NKDA ROS: GENERAL/CONSTITUTIONAL: No fever or chills. No weakness. HEAD, EYES, EARS, NOSE AND THROAT: No change in vision. No ear pain or discharge. No sore throat. CARDIOVASCULAR: +palpitations and shortness of breath RESPIRATORY: No cough, wheezing, or hemoptysis. GASTROINTESTINAL: No nausea, vomiting, diarrhea or constipation. GENITOURINARY: No dysuria, frequency, or change in urination. MUSCULOSKELETAL: No joint or muscle swelling or pain. No neck or back pain. SKIN: No rash NEUROLOGIC: No headache, vertigo, loss of consciousness, or change in strength/ sensation. ENDOCRINE: No increased thirst. No abnormal weight change HEMATOLOGIC/LYMPHATIC: No anemia, easy bleeding, or history of blood clots. ALLERGIC/IMMUNOLOGIC: No hives or skin allergy. PE: GENERAL: Awake, alert, and fully oriented, no acute distress, tremulousness and psychomotor agitation (tapping foot) HEAD: No signs of trauma, normocephalic, atraumatic EYES: EOMI, sclera anicteric, conjunctiva clear ENT: Auricles normal inspection, cerumen in ear canal not allowing adequate TM visualization, hearing grossly normal, nares patent, oropharynx clear without exudates. Moist mucosa NECK: Normal ROM, no lymphadenopathy LUNGS: No increased work of breathing, symmetrical chest rise, clear to auscultation bilaterally, no wheezes, crackles or rhonchi HEART: Regular rate and rhythm, normal S1 and S2, no murmurs, peripheral pulses 2+ and equal bilaterally. ABDOMEN: Soft, nondistended, nontender, normoactive bowel sounds. No guarding, no rebound. No masses. No CVAT EXTREMITIES: Normal inspection, Normal range of motion, no edema. No clubbing or cyanosis. NEUROLOGICAL: Cranial nerves II through XII grossly intact. Normal speech, normal gait, no focal sensorimotor deficits SKIN: Warm, Dry, normal turgor, no rashes or lesions noted Past History - Past Medical History Allergies/Adverse Reactions: Allergies Allergy/AdvReac Type Severity Reaction Status Date / Time No Known Allergies Allergy Verified 03/01/19 16:08 Home Medications: Ambulatory Orders NK [No Known Home Medication] 03/01/19 Asthma: No Cardiac Disorders: No COPD: No Diabetes: No GI Disorders: No Disorders: No HTN: No Kidney Stones: No Seizures: No - Surgical History Abdominal Surgery: No Appendectomy: No Cardiac Surgery: No Cholecystectomy: No Lung Surgery: No Neurologic Surgery: No Orthopedic Surgery: Yes (Right foot, 2nd digit amputation) - Reproductive History Testicular Surgery: No - Psycho Social/Smoking Cessation Hx Smoking History: Current every day smoker Have you smoked in the past 12 months: Yes Number of Cigarettes Smoked Daily: 5 Information on smoking cessation initiated: No Hx Alcohol Use: Yes Drug/Substance Use Hx: Yes Substance Use Type: Alcohol, Heroin, Marijuana, Opiates Hx Substance Use Treatment: No *Physical Exam - Vital Signs Last Vital Signs Temp Pulse Resp BP Pulse Ox 98 F 53 L 18 131/78 99 03/01/19 16:03 03/01/19 16:03 03/01/19 16:03 03/01/19 16:03 03/01/19 16:03 Medical Decision Making - Medical Decision Making 03/01/19 18:58 28 y/o with hx of anxiety and opiate prescription abuse s/p rehab presenting with several weeks of anxiety that worsened today with symptoms of chest tightness, palpitations, with feelings of heavy breathing. VSS, AF. -ekg, ear disimpaction -5mg po valium -will dc home with f/u for psych; return pcxns discussed; patient comfortable with plan and has no other questions Discharge - Discharge Information Problems reviewed: Yes Clinical Impression/Diagnosis: Anxiety, Palpitations Condition: Stable Disposition: HOME - Follow up/Referral Referrals: Maggy Pulido MD [Staff Physician] - - Patient Discharge Instructions Patient Printed Discharge Instructions: DI for Anxiety -- Adult, DI for Palpitations Additional Instructions: Return to the ED if your symptoms worsen or you have severe chest pain, fainting , feeling of suicidality Please followup with your PCP or the attached referral information for Dr Pulido - Post Discharge Activity
[2019-03-01 19:07] VITALS: BP 124/69; PULSE 57; TEMP 97.7
--- NOTE | 2019-03-02 13:06 | EKG ---
Test Reason : Blood Pressure : / mmHG Vent. Rate : 098 BPM Atrial Rate : 098 BPM P-R Int : 160 ms QRS Dur : 100 ms QT Int : 364 ms P-R-T Axes : 059 075 053 degrees QTc Int : 464 ms POOR DATA QUALITY, INTERPRETATION MAY BE ADVERSELY AFFECTED SINUS RHYTHM WITH PREMATURE SUPRAVENTRICULAR COMPLEXES NO PREVIOUS ECGS AVAILABLE Confirmed by AMANDA LINDSEY MD ([id number]) on 03/02/2019 1:05:36 PM Referred By: Confirmed By:AMANDA LINDSEY MD
== END 2019-03-01 19:09 | disposition home or self-care (01) ==
LOC: JER 16:02
DX: F41.9 Anxiety disorder, unspecified (principal); R00.2 Palpitations; F11.11 Opioid abuse, in remission; F17.210 Nicotine dependence, cigarettes, uncomplicated; Z89.421 Acquired absence of other right toe(s)
CPT/HCPCS: 93005; 93010; 99282-25

== ENCOUNTER 2019-05-06 20:38 | Emergency (ER) | payer OTHER ==
[2019-05-06 21:22] VITALS: BP 140/78; PULSE 99; TEMP 98.2; BMI 29.5
--- NOTE | 2019-05-06 23:10 | PDOC ---
History of Present Illness - General Chief Complaint: Pain Stated Complaint: R KNEE INJURY Time Seen by Provider: 05/06/19 22:58 History Source: Patient - History of Present Illness Occurred: reports: yesterday Severity: Yes: moderate Lower Extremity Pain Location: right: knee Past History - Past Medical History Allergies/Adverse Reactions: Allergies Allergy/AdvReac Type Severity Reaction Status Date / Time No Known Allergies Allergy Verified 03/01/19 16:08 Home Medications: Ambulatory Orders Cephalexin [Keflex] 500 mg PO Q6H #28 capsule 05/06/19 Asthma: No Cardiac Disorders: No COPD: No Diabetes: No GI Disorders: No Disorders: No HTN: No Kidney Stones: No Seizures: No - Surgical History Abdominal Surgery: No Appendectomy: No Cardiac Surgery: No Cholecystectomy: No Lung Surgery: No Neurologic Surgery: No Orthopedic Surgery: Yes (Right foot, 2nd digit amputation) - Reproductive History Testicular Surgery: No - Psycho Social/Smoking Cessation Hx Smoking History: Current every day smoker Have you smoked in the past 12 months: Yes Number of Cigarettes Smoked Daily: 5 Information on smoking cessation initiated: Yes Hx Alcohol Use: No Drug/Substance Use Hx: Yes ([facility]) Substance Use Type: Alcohol, Heroin, Marijuana, Opiates Hx Substance Use Treatment: No Review of Systems - Review of Systems Constitutional: No: Chills, Fever Musculoskeletal: Yes: Joint Pain. No: Joint Swelling Integumentary: Yes: Bruising *Physical Exam - Vital Signs Last Vital Signs Temp Pulse Resp BP Pulse Ox 98.2 F 99 H 20 140/78 98 05/06/19 21:17 05/06/19 21:17 05/06/19 21:17 05/06/19 21:17 05/06/19 21:17 - Physical Exam General Appearance: Yes: Appropriately Dressed, Mild Distress HEENT: positive: Normal Voice Neck: positive: Supple Respiratory/Chest: negative: Respiratory Distress Extremity: positive: Other (stage 3 abrasion to anterior R knee w/ limited surrounding erythema and sig ttp, no joint swelling, LROM 2/2 pain) Integumentary: positive: Dry, Warm Neurologic: positive: Fully Oriented, Alert, Normal Mood/Affect Medical Decision Making - Medical Decision Making 05/06/19 23:05 28 yo M, h/o PTSD, anxiety, here with severe R knee pain after fall yesterday. States he went to [facility] and was told he had "a deep abrasion" and sent home. States no x-ray was done. States he feels like pain is worse today. Able to bear weight but painful. No fever or chills see exam M/l stage 3 knee abrasion w/ ? early cellulitis -Local wound care and dressing in facility -tetanus UTD -XR -dc w/ keflex and wound check in 2 days 05/06/19 23:53 XR neg for fx. Stable for discharge Discharge - Discharge Information Problems reviewed: Yes Clinical Impression/Diagnosis: Knee abrasion Qualifiers: Encounter type: initial encounter Laterality: right Qualified Code(s): S80.211A - Abrasion, right knee, initial encounter Condition: Good Disposition: HOME - Additional Discharge Information Prescriptions: Cephalexin [Keflex] 500 mg PO Q6H #28 capsule - Follow up/Referral - Patient Discharge Instructions Patient Printed Discharge Instructions: DI for Abrasion Additional Instructions: Your xray showed no broken bones You most likely have a stage III abrasion to your right knee. Please keep wound clean and dry with dressing in place until wound scabs over. You were started on antibiotics for possible infection to site. Take medication as directed and return to ER in 2 days for wound check Continue taking Motrin every 6 hours for pain as needed - Post Discharge Activity
[2019-05-06] MEDS ORDERED: IBUPROFEN 400 MG TABLET (FP) PO ONE (23:11)
[2019-05-07] MEDS ORDERED: IBUPROFEN 400 MG TABLET (FP) PO ONE
== END 2019-05-07 00:07 | disposition home or self-care (01) ==
LOC: JERFT 20:38
DX: S80.211A Abrasion, right knee, initial encounter (principal); W18.39XA Other fall on same level, initial encounter; Y93.89 Activity, other specified; Y92.414 Local residential or business street as the place of occurrence of the external cause; Y99.8 Other external cause status; F43.10 Post-traumatic stress disorder, unspecified; F41.9 Anxiety disorder, unspecified; F17.210 Nicotine dependence, cigarettes, uncomplicated
CPT/HCPCS: 73562-TC-RT-FY; 99281-25

== ENCOUNTER 2019-06-04 10:03 | Inpatient (IN) | payer OTHER ==
--- NOTE | 2019-06-04 10:26 | BHS.RME ---
Substance Use & Tx History - Substance Use History Alcohol Substance amount: 2 nips, on Tuesday a pint of Vodka Frequency of use: More than 3 times per week Substance route: Oral Date of Last Use: 06/02/19 Cannabis (Synthetic) Substance amount: tried twice Cocaine (Powder) Substance amount: $20. Frequency of use: More than 3 times per week Substance route: Inhalation (ex: sniffing or snorting) Date of Last Use: 06/02/19 Physical/Psych/Mental Status - Behavior Eye Contact: Normal - Cooperativeness Cooperativeness: Cooperative - Thinking Thought Processes: Tight Thought content: Future oriented - Physical Health Problems Is patient presently having any pain?: No Does patient presently have any injuries (include location): No Does patient currently have a fever: No Is patient : No COWS - Scale Resting Pulse: 1= [place] 81-100 Restless Observation: 1= Difficult to Sit Still Pupil Size: 0= Normal to Room Light Bone or Joint Aches: 1= Mild Discomfort Runny Nose/ Eye Tearin= Runny Nose/Eyes GI Upset > 30mins: 0= None Tremor Observation: 0= None Yawning Observation: 0= None Anxiety or Irritability: 1=Feels Anxious/Irritable Goose Flesh Skin: 0=Smooth Skin
[2019-06-04 11:32] VITALS: BP 116/73; PULSE 96; TEMP 98.5; BMI 28.9
--- NOTE | 2019-06-04 11:50 | HP ---
COWS - Scale Resting Pulse: 1= [place] 81-100 Restless Observation: 1= Difficult to Sit Still Pupil Size: 0= Normal to Room Light Bone or Joint Aches: 1= Mild Discomfort Runny Nose/ Eye Tearin= Runny Nose/Eyes GI Upset > 30mins: 0= None Tremor Observation: 0= None Yawning Observation: 0= None Anxiety or Irritability: 1=Feels Anxious/Irritable Goose Flesh Skin: 0=Smooth Skin CIWA Score - Admission Criteria OASAS Guidelines: Admission for Medically Managed Detox: Requires at least one of the followin. CIWA greater than 12 2. Seizures within the past 24 hours 3. Delirium tremens within the past 24 hours 4. Hallucinations within the past 24 hours 5. Acute intervention needed for co occurring medical disorder 6. Acute intervention needed for co occurring psychiatric disorder 7. Severe withdrawal that cannot be handled at a lower level of care (continued vomiting, continued diarrhea, abnormal vital signs) requiring intravenous medication and/or fluids 8. Admitting History and Physical - Admission Chief Complaint: Mr. Bridges is a 28 yo gentleman who presents stating he is here to "get my life back on track". He is using multiple substances including alcohol, cocaine, K2, benzos and possibly fentanyl. History of Present Illness: Mr. Bridges is a 28 yo gentleman who presents stating he is here to "get my life back on track". He is using multiple substances including alcohol, cocaine, K2 , benzos and possibly fentanyl. He overdosed twice in the past 6 weeks. He was seeking benzodiazepines and thinks he got fentanyl causing his overdose. His last detox was here in February 2019. PMH: possible ADHD, never diagnosed Psych; anxiety, depression, prior use of Zoloft and Seroquel, did not tolerate, he states "made me worse". Now on Remeron 30 mg daily PSH; right second toe amputation, takes gabapentin 800 tid, "sometimes" site is painful Substance use history Alcohol: first use age 18y, last use 2 days ago, drinks every other day 2 nips, on Tuesday may drink a pint of Vodka. Black out in the summer of 2018. No hx of seizures cocaine: first use at the age of 26 y, last use 2 d ago, $20 every other day, sniffs K2: rare: tried twice, first use 2 weeks ago, last use 3 days ago Benzos: has purchased on the street, first use 26 yo, last use one month ago, possible OD as above. Opiates: on Suboxone from [facility] 16 mg daily, last dose 2 days ago, feeling some withdrawal sx now Nicotine: 1/2 ppd, started at agge 20y, last smoked today - Smoking History Smoking history: Current every day smoker Have you smoked in the past 12 months: Yes Aproximately how many cigarettes per day: 10 - Alcohol/Substance Use Hx Alcohol Use: No - Social History ADL: Family Assistance Admission ROS [facility] - HPI Allergies/Adverse Reactions: Allergies Allergy/AdvReac Type Severity Reaction Status Date / Time No Known Allergies Allergy Verified 06/04/19 11:20 Exam Limitations: No Limitations - Ebola screening Have you traveled outside of the country in the last 21 days: No Have you had contact with anyone from an Ebola affected area: No Have you been sick,other than usual withdrawal symptoms: No Do you have a fever: No - Review of Systems Constitutional: No Symptoms Reported EENT: reports: No Symptoms Reported Respiratory: reports: No Symptoms reported, Other (nasal congestion) Cardiac: reports: No Symptoms Reported GI: reports: No Symptoms Reported : reports: No Symptoms Reported Musculoskeletal: reports: Back Pain Integumentary: reports: No Symptoms Reported Neuro: reports: No Symptoms reported Endocrine: reports: No Symptoms Reported Hematology: reports: No Symptoms Reported Psychiatric: reports: Anxious Patient History - Patient Medical History Hx Asthma: No Hx Chronic Obstructive Pulmonary Disease (COPD): No Hx Cancer: No Hx Cardiac Disorders: No Hx Hypertension: No Hx Hypercholesterolemia: No Hx Pacemaker: No HX Cerebrovascular Accident: No Hx Seizures: No Hx Diabetes: No Hx Gastrointestinal Disorders: No Hx Liver Disease: No Hx Genitourinary Disorders: No Hx Sexually Transmitted Disorders: No Hx Renal Disease (ESRD): No Hx Thyroid Disease: No Hx Human Immunodeficiency Virus (HIV): No Hx Hepatitis C: No Hx Depression: Yes (on meds, hospitalized 2018, no SI/HI/SA) Hx Suicide Attempt: No Hx Bipolar Disorder: No Hx Schizophrenia: No - Patient Surgical History Past Surgical History: Yes Hx Neurologic Surgery: No Hx Cataract Extraction: No Hx Cardiac Surgery: No Hx Lung Surgery: No Hx Breast Surgery: No Hx Breast Biopsy: No Hx Abdominal Surgery: No Hx Appendectomy: No Hx Cholecystectomy: No Hx Genitourinary Surgery: No Hx Section: No Hx Orthopedic Surgery: Yes (Right foot, 2nd digit amputation - 01/2019) Anesthesia Reaction: No - PPD History Previous Implant?: Yes Documented Results: Negative w/proof - Smoking Cessation Smoking history: Current every day smoker Have you smoked in the past 12 months: Yes Aproximately how many cigarettes per day: 10 Hx Chewing Tobacco Use: No Initiated information on smoking cessation: Yes 'Breaking Loose' booklet given: 06/04/19 - Substances abused Cocaine Substance route: Inhalation Frequency: 3-6 times per week Amount used: $20 Age of first use: 26 Date of last use: 06/02/19 Alcohol Frequency: 1-2 times per week Amount used: 1 PINT OF VODKA Age of first use: 20 Date of last use: 06/02/19 K2/Spice Frequency: 1-3 times last 30 days Amount used: 1/2 joint Age of first use: 28 Date of last use: 06/01/19 Admission Physical Exam [facility] - Vital Signs Vital Signs: Vital Signs - 24 hr 06/04/19 11:22 Temperature 98.5 F Pulse Rate 96 H Respiratory 20 Rate Blood Pressure 116/73 - Physical General Appearance: Yes: Within Normal Limits HEENTM: Yes: Within Normal Limits Respiratory: Yes: Lungs Clear, Normal Breath Sounds Neck: Yes: Within Normal Limits Breast: Yes: Breast Exam Deferred Cardiology: Yes: Regular Rate, S1, S2 Abdominal: Yes: Normal Bowel Sounds, Non Tender, Flat, Soft Back: Yes: Normal Inspection Musculoskeletal: Yes: Within Normal Limits Extremities: Yes: Other (old abrasion right proximal leg/subpatellar s/p fall weeks ago) Neurological: Yes: Within Normal Limits Integumentary: Yes: Other (as above) Lymphatic: Yes: Within Normal Limits Cleared for Admission [facility] - Detox or Rehab [facility] Level of Care: Medically Supervised Claeared for Rehab Admission: Yes (on Suboxone) Breathalyzer - Breathalyzer Breathalyzer: 0 Urine Drug Screen - Test Device Lot number: [id number] Expiration date: 03/10/21 - Control Is test valid?: Yes - Results Drug screen NEGATIVE: No Urine drug screen results: THC-Marijuana, DEEPIKA-Cocaine, BZO-Benzodiazepines, BUP- Suboxone Inpatient Rehab Admission - Rehab Decision to Admit Inpatient rehab admission?: Yes - Initial Determination Are CD services needed?: Yes Free of communicable disease: Yes Not in need of hospitalization: Yes - Rehab Admission Criteria Previous failed treatment: Yes Poor recovery environment: Yes Comorbidities: Yes Lacks judgement: Yes Patient is meeting Inpatient Rehab admission criteria:: Yes
[2019-06-04] MEDS ORDERED: MAGNESIUM CITRATE 300 ML BOTTLE PO PRN (11:58)
[2019-06-04] MEDS ORDERED: ACETAMINOPHEN 325 MG TABLET (FP) PO PRN (11:58)
[2019-06-04] MEDS ORDERED: P-EPHED 60MG/TRIPROLIDI 2.5MG TABLET PO PRN (11:58)
[2019-06-04] MEDS ORDERED: IBUPROFEN 400 MG TABLET (FP) PO PRN (11:58)
[2019-06-04] MEDS ORDERED: MENTHOL/PHENOL 1 EACH UD MM PRN (11:58)
[2019-06-04] MEDS ORDERED: MAGNESIUM HYDROX 2400MG/30ML ORAL SUSPENSION 30 ML CUP PO PRN (11:58)
[2019-06-04] MEDS ORDERED: LOPERAMIDE HCL 2 MG CAPSULE PO PRN (11:58)
[2019-06-04] MEDS ORDERED: MAG HYDROX/AL HYDROX/SIMETH 30 ML UNIT-DOSE CUP PO PRN (11:58)
[2019-06-04] MEDS ORDERED: guaiFENesin 200 MG/10 ML 10 ML UNIT-DOSE CUPS PO PRN (11:58)
[2019-06-04] MEDS: GABAPENTIN 100 MG CAPSULE PO SCH ×2 (13:07→21:05)
[2019-06-04] MEDS: NICOTINE 14 MG/24 HOURS TOPICAL PATCH TD SCH (13:07)
[2019-06-04] MEDS: BUPRENORPHINE/NALOXONE 8 MG/2 MG FILM PACKET SL SCH (13:08)
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
[2019-06-04 16:19] LABS: HEMATOCRIT 46.7 % (35.4-49); HEMOGLOBIN 15.4 GM/dL (11.7-16.9); MCH 29.5 pg (25.7-33.7); MEAN CELL VOLUME 89.5 fl (80-96); MEAN PLT VOLUME 12.1 fl (7.5-11.1); PLATELET COUNT 270 K/MM3 (134-434); RBC 5.22 M/mm3 (4.00-5.60); RDW 14.1 % (11.9-15.9); WHITE BLOOD COUNT 9.5 K/mm3 (4.0-10.0)
[2019-06-04 16:21] LABS: ALBUMIN 4.6 g/dl (3.4-5.0); BILIRUBIN,TOTAL 0.4 mg/dL (0.2-1); BLOOD UREA NITROGEN 11.9 mg/dL (7-18); CALCIUM 10.4 mg/dL (8.5-10.1); CREATININE 1.1 mg/dL (0.55-1.3); POTASSIUM 4.4 mmol/L (3.5-5.1); TOT PROT 8.4 g/dl (6.4-8.2)
[2019-06-04] MEDS: hydrOXYzine PAMOATE 25 MG CAPSULE (FP) PO PRN ×2 (18:11→23:12)
[2019-06-04] MEDS: MELATONIN 5 MG TABLETS PO PRN (21:05)
[2019-06-04] MEDS: MIRTAZAPINE 30 MG TABLET (FP) PO SCH (21:05)
[2019-06-04] MEDS: THIAMINE HCL 100 MG TABLET (FP) PO SCH (22:02)
[2019-06-05] MEDS: GABAPENTIN 100 MG CAPSULE PO SCH ×3 (06:53→21:16)
[2019-06-05] MEDS: PRENATAL VITAMINS W/ FOLIC ACID TABLET (FP) PO SCH (10:06)
[2019-06-05] MEDS: NICOTINE 14 MG/24 HOURS TOPICAL PATCH TD SCH (10:06)
[2019-06-05] MEDS: hydrOXYzine PAMOATE 25 MG CAPSULE (FP) PO PRN ×4 (10:07→22:14)
[2019-06-05] MEDS: BUPRENORPHINE/NALOXONE 8 MG/2 MG FILM PACKET SL SCH (10:07)
--- NOTE | 2019-06-05 12:55 | PN ---
[facility] Progress Note Note: Pt is a 28 y/o male with a hx of MONI-cocaine,Benzo,K2,Fentanyl and on Suboxone MAT 8mg/2mg sl 2 films daily admitted to rehab through [facility] on 06/04/19. Pt reports he has a primary care provider Dr. Smith in the [place]. Pt reports he attends [facility] and was supposed to see the psychiatrist yesterday there but decided to come into Rehab inpatient by himself. Pt reports he is on Gabapentin 800 mg po TID and also Seroquel at [place] by the psychiatrist there. Pt requesting Re-eval for medications here. vital Signs - 24 hr 06/05/19 06/05/19 00:30 03:30 Respiratory 18 16 Rate Laboratory Tests 06/04/19 06/04/19 06/04/19 12:15 12:15 12:15 WBC 9.5 RBC 5.22 Hgb 15.4 Hct 46.7 MCV 89.5 MCH 29.5 MCHC 33.0 RDW 14.1 Plt Count 270 MPV 12.1 H Sodium 137 Potassium 4.4 Chloride 101 Carbon Dioxide 29 Anion Gap 7 L BUN 11.9 Creatinine 1.1 Est GFR (CKD-EPI)AfAm 106.81 Est GFR (CKD-EPI)NonAf 92.16 Random Glucose 88 Calcium 10.4 H Total Bilirubin 0.4 AST 20 ALT 49 Alkaline Phosphatase 109 Total Protein 8.4 H Albumin 4.6 RPR Titer Nonreactive Alert o x 3 nad oob ambulating with steady gait extremities/skin:Right knee with dry abrasion due to fall. No edema. left lower eye area with dry, pink skin abrasion related to same fall "down the stairs(2 weeks ago) A/P MONI new rehab pt Maintain safety increase po fluids follow up with psych consult cont rehab
[2019-06-05] MEDS ORDERED: NICOTINE POLACRILEX 2 MG GUM BUC PRN (14:48)
[2019-06-05] MEDS: THIAMINE HCL 100 MG TABLET (FP) PO SCH (21:16)
[2019-06-05] MEDS: MELATONIN 5 MG TABLETS PO PRN (21:16)
[2019-06-05] MEDS: MIRTAZAPINE 30 MG TABLET (FP) PO SCH (21:16)
[2019-06-06] MEDS: GABAPENTIN 100 MG CAPSULE PO SCH (07:31)
[2019-06-06] MEDS: PRENATAL VITAMINS W/ FOLIC ACID TABLET (FP) PO SCH (10:07)
[2019-06-06] MEDS: NICOTINE 14 MG/24 HOURS TOPICAL PATCH TD SCH (10:07)
[2019-06-06] MEDS: BUPRENORPHINE/NALOXONE 8 MG/2 MG FILM PACKET SL SCH (10:08)
--- NOTE | 2019-06-06 11:17 | DS ---
[facility] Rehab Discharge Summary - [facility] Rehab Discharge Summary Admission Date: 06/04/19 Discharge Date: 06/06/19 - History Present History: Alcohol dependence, Cocaine dependence Additional Comments: Pt is a 28 y/o male with a hx of MONI admitted to rehab on 06/04/19 and requesting early discharge today for personal reasons. Pt met with his counselor Ms Karie Duval who has called to inform [facility] of same. Pt came from [facility] and is discharged back to the clinic to continue Suboxone MAT and CD aftercare. Pt's Suboxone MAT management provider Helena William was contacted and updated on pt's plan. Recommendation is to give pt one day Rx of Suboxone 8mg/2mg 2 films sl daily electronically sent to [facility] for shredder picker and pt to follow up with her at [facility] on 06/07/19 at the clinic. Pt reports he has a primary care provider, Dr. Smith in the [place](pt does not remember address or phone #). Pertinent Past History: Palpitations Right knee abrasion related to fall(resolved) PTSD Depression - Discharge Physical Exam Vital Signs: Vital Signs Temperature 98.5 F 06/04/19 11:22 Pulse Rate 96 H 06/04/19 11:22 Respiratory Rate 17 06/06/19 03:40 Blood Pressure 116/73 06/04/19 11:22 O2 Sat by Pulse Oximetry (%) Alert o x 3 nad oob ambulating with steady gait cardiac:s1 s2 lungs:cta,gabriela. abdomen:+bs,nt,nd extremities/skin:no edema;skin intact. Pertinent Admission Physical Exam Findings: Laboratory Tests 06/04/19 06/04/19 06/04/19 12:15 12:15 12:15 WBC 9.5 RBC 5.22 Hgb 15.4 Hct 46.7 MCV 89.5 MCH 29.5 MCHC 33.0 RDW 14.1 Plt Count 270 MPV 12.1 H Sodium 137 Potassium 4.4 Chloride 101 Carbon Dioxide 29 Anion Gap 7 L BUN 11.9 Creatinine 1.1 Est GFR (CKD-EPI)AfAm 106.81 Est GFR (CKD-EPI)NonAf 92.16 Random Glucose 88 Calcium 10.4 H Total Bilirubin 0.4 AST 20 ALT 49 Alkaline Phosphatase 109 Total Protein 8.4 H Albumin 4.6 RPR Titer Nonreactive - Treatment Discharge Condition: Discharge condition good Hospital Course: Maintained safety CD aftercare accepted back to [facility] - Medication Discharge Medications: Ambulatory Orders Buprenorphine/Naloxone [Suboxone 8Mg/2Mg Sl Film -] 1 each SL BID #18 film MDD 2 05/29/19 Gabapentin 800 mg PO TID 05/29/19 Mirtazapine [Remeron -] 30 mg PO HS 05/29/19 Naloxone HCl [Narcan] 4 mg NS ONCE PRN #1 spray 05/29/19 Nicotine Polacrilex [Nicotine Gum] 4 mg BC Q2H PRN #1 box 05/29/19 Buprenorphine/Naloxone [Suboxone 8Mg/2Mg Sl Film -] 2 each SL DAILY 1 Days #2 packet MDD 2 06/06/19 Gabapentin [Neurontin -] 100 mg PO TID #90 capsule 06/06/19 Mirtazapine [Remeron -] 30 mg PO HS #30 tablet 06/06/19 Quetiapine Fumarate [Seroquel -] 200 mg PO HS 06/06/19 - Medication-Assisted Treatment (MAT) Medication-Assisted Treatment (MAT): Yes Medication Prescribed: Suboxone MAT [facility] [place] [address] - Discharge Instructions Diet, activity, other medical instructions: Diet:Regular Activity: oob ad tete Other medical instructions:follow up with CD aftercare at [facility] today after discharge. Follow up with Suboxone MAT provider Helena William on 06/07/19 for medication management as discussed. - Diagnosis (1) Encounter for monitoring Suboxone maintenance therapy Current Visit: Yes Status: Chronic (2) Alcohol dependence, uncomplicated Current Visit: Yes Status: Chronic (3) Cocaine use disorder Current Visit: Yes Status: Chronic (4) Nicotine dependence Current Visit: Yes Status: Chronic Qualifiers: Nicotine product type: cigarettes Substance use status: uncomplicated Qualified Code(s): F17.210 - Nicotine dependence, cigarettes, uncomplicated (5) Sedative, hypnotic or anxiolytic dependence, uncomplicated Current Visit: Yes Status: Chronic - Follow-up Referral Minutes to complete discharge: 25 - AMA Did Patient Leave Against Medical Advice: No Additional Comments: Report on this patient given to Medical provider at [facility], Dr. Helena William, [employer] and she spoke to this conventional underwriter and patient instructing him to come to clinic tomorrow 06/07/19 to follow up with Suboxone MAT management post rehab visit. Pt was instructed to stop at the clinic today to meet with his Counselor who has been informed of pt's request for discharge
--- NOTE | 2019-06-06 11:37 | PN ---
S Progress Note Note: Psychiatric nurse practitioner note: Patient leaving rehab today. A 30 day prescription of Gabapentin 100mg TID + Mirtazapine 30mg HS was electronically sent to [facility] @ [address] [place] [address].
== END 2019-06-06 11:15 | disposition home or self-care (01) | DRG 772 ==
LOC: YASAS 10:03 → Y5N 11:23
PROVIDERS: ADMIT Allergy & Immunology; ATTEND Allergy & Immunology
PROC: HZ42ZZZ Group Counseling for Substance Abuse Treatment, Cognitive-Behavioral (ICD-10-PCS; principal; 2019-06-04)
DX: F10.20 Alcohol dependence, uncomplicated (principal); F11.20 Opioid dependence, uncomplicated; F13.20 Sedative, hypnotic or anxiolytic dependence, uncomplicated; F14.20 Cocaine dependence, uncomplicated; F17.210 Nicotine dependence, cigarettes, uncomplicated; F19.10 Other psychoactive substance abuse, uncomplicated; F19.24 Other psychoactive substance dependence with psychoactive substance-induced mood disorder; F32.9 Major depressive disorder, single episode, unspecified; F43.10 Post-traumatic stress disorder, unspecified; R00.2 Palpitations; Z51.81 Encounter for therapeutic drug level monitoring; Z89.421 Acquired absence of other right toe(s); Z91.19 Patient's noncompliance with other medical treatment and regimen; S80.211D Abrasion, right knee, subsequent encounter; S00.212 Abrasion of left eyelid and periocular area; W10.8XXD Fall (on) (from) other stairs and steps, subsequent encounter
CPT/HCPCS: 36415; 80053; 85027; 86593

== ENCOUNTER 2020-03-11 11:20 | Inpatient (IN) | payer OTHER ==
[2020-03-11 15:47] VITALS: BMI 31.3
[2020-03-11] MEDS ORDERED: LOPERAMIDE HCL 2 MG CAPSULE PO PRN (16:16)
[2020-03-11] MEDS ORDERED: P-EPHED 60MG/TRIPROLIDI 2.5MG TABLET PO PRN (16:16)
[2020-03-11] MEDS ORDERED: guaiFENesin 200 MG/10 ML 10 ML UNIT-DOSE CUPS PO PRN (16:16)
[2020-03-11] MEDS ORDERED: MAGNESIUM CITRATE 300 ML BOTTLE PO PRN (16:16)
[2020-03-11] MEDS ORDERED: MAG HYDROX/AL HYDROX/SIMETH 30 ML UNIT-DOSE CUP PO PRN (16:16)
[2020-03-11] MEDS ORDERED: NICOTINE 7 MG/24 HOURS TOPICAL PATCH TD SCH (16:30)
[2020-03-11] MEDS ORDERED: TUBERCULIN PPD 5 TU/0.1ML VIAL ID ONE ×2 (16:57→22:10)
[2020-03-11] MEDS: PRENATAL VITAMINS W/ FOLIC ACID TABLET (FP) PO SCH (17:00)
[2020-03-11] MEDS: hydrOXYzine PAMOATE 25 MG CAPSULE (FP) PO SCH ×2 (17:00→21:42)
[2020-03-11] MEDS: NICOTINE 21 MG/24 HOURS TOPICAL PATCH TD SCH (17:00)
[2020-03-11] MEDS ORDERED: MASKS NR ONE (18:20)
[2020-03-11] MEDS: THIAMINE HCL 100 MG TABLET (FP) PO SCH (21:41)
[2020-03-11] MEDS: MELATONIN 5 MG TABLETS PO SCH (21:41)
[2020-03-11] MEDS ORDERED: BUPRENORPHINE HCL 8 MG SL SCH (22:00)
[2020-03-12] MEDS: ACETAMINOPHEN 325 MG TABLET (FP) PO PRN ×2 (00:15→16:49)
[2020-03-12] MEDS: hydrOXYzine PAMOATE 25 MG CAPSULE (FP) PO SCH ×2 (07:09→10:46)
[2020-03-12] MEDS: NICOTINE POLACRILEX 2 MG GUM BC PRN ×2 (07:10→21:33)
[2020-03-12] MEDS: PRENATAL VITAMINS W/ FOLIC ACID TABLET (FP) PO SCH (09:29)
[2020-03-12] MEDS: NICOTINE 21 MG/24 HOURS TOPICAL PATCH TD SCH (09:29)
[2020-03-12] MEDS: BUPRENORPHINE HCL 8 MG SL SCH ×2 (09:30→21:16)
[2020-03-12] MEDS ORDERED: hydrOXYzine PAMOATE 25 MG CAPSULE (FP) PO PRN (10:08)
[2020-03-12 10:15] LABS: POTASSIUM 4.3 mmol/L (3.5-5.1)
[2020-03-12 10:17] LABS: HEMATOCRIT 45.7 % (35.4-49); MCH 29.1 pg (25.7-33.7); MCHC 32.8 g/dl (32.0-35.9); MEAN CELL VOLUME 88.5 fl (80-96); MEAN PLT VOLUME 13.2 fl (7.5-11.1); PLATELET COUNT 254 K/MM3 (134-434); RBC 5.16 M/mm3 (4.00-5.60); RDW 12.8 % (11.9-15.9)
[2020-03-12 10:23] LABS: CALCIUM 10.2 mg/dL (8.5-10.1)
[2020-03-12 10:24] LABS: ALBUMIN 4.9 g/dl (3.4-5.0); BLOOD UREA NITROGEN 14.3 mg/dL (7-18)
[2020-03-12 10:27] LABS: CREATININE 1.1 mg/dL (0.55-1.3)
[2020-03-12 10:29] LABS: BILIRUBIN,TOTAL 0.4 mg/dL (0.2-1); TOT PROT 8.5 g/dl (6.4-8.2)
[2020-03-12] MEDS: hydrOXYzine PAMOATE 50 MG CAPSULE (FP) PO PRN (16:50)
[2020-03-12 18:05] LABS: URINE APPEARANCE Error; URINE BILIRUBIN NEGATIVE (NEGATIVE); URINE COLOR YELLOW; URINE GLUCOSE (UA) NEGATIVE (NEGATIVE); URINE KETONE TRACE (NEGATIVE); URINE LEUK ESTERASE NEGATIVE (NEGATIVE); URINE NITRITE NEGATIVE (NEGATIVE); URINE PROTEIN NEGATIVE (NEGATIVE); URINE UROBILINOGEN 0.2 mg/dL (0.2-1.0)
[2020-03-12] MEDS: IBUPROFEN 400 MG TABLET (FP) PO PRN (18:22)
[2020-03-12] MEDS ORDERED: BENZOCAINE 20 % GEL TUBE MM PRN (18:45)
[2020-03-12] MEDS: MELATONIN 5 MG TABLETS PO SCH (21:16)
[2020-03-12] MEDS: QUEtiapine FUMARATE 100 MG TABLET (FP) PO SCH (21:16)
[2020-03-12] MEDS: THIAMINE HCL 100 MG TABLET (FP) PO SCH (21:16)
[2020-03-12] MEDS: GABAPENTIN 100 MG CAPSULE PO SCH (21:16)
[2020-03-12] MEDS ORDERED: MASKS NR ONE (22:15)
[2020-03-13] MEDS: GABAPENTIN 100 MG CAPSULE PO SCH ×3 (07:01→22:06)
[2020-03-13] MEDS: PRENATAL VITAMINS W/ FOLIC ACID TABLET (FP) PO SCH (09:41)
[2020-03-13] MEDS: NICOTINE 21 MG/24 HOURS TOPICAL PATCH TD SCH (09:41)
[2020-03-13] MEDS: MAGNESIUM HYDROX 2400MG/30ML ORAL SUSPENSION 30 ML CUP PO PRN (09:42)
[2020-03-13] MEDS: BUPRENORPHINE HCL 8 MG TAB.SUBL SL SCH ×2 (11:13→22:06)
[2020-03-13] MEDS: hydrOXYzine PAMOATE 50 MG CAPSULE (FP) PO PRN ×2 (11:17→22:06)
[2020-03-13] MEDS ORDERED: LIDOCAINE VISCOUS 2% ORAL/TOP 20 ML UNIT-DOSE CUP MM PRN (13:04)
[2020-03-13] MEDS: THIAMINE HCL 100 MG TABLET (FP) PO SCH (22:06)
[2020-03-13] MEDS: QUEtiapine FUMARATE 100 MG TABLET (FP) PO SCH (22:06)
[2020-03-13] MEDS: AMOXICILLIN 500 MG CAPSULE (FP) PO SCH (22:06)
[2020-03-13] MEDS: MELATONIN 5 MG TABLETS PO SCH (22:06)
[2020-03-13] MEDS: IBUPROFEN 400 MG TABLET (FP) PO PRN (22:07)
[2020-03-13] MEDS: NICOTINE POLACRILEX 2 MG GUM BC PRN (22:32)
[2020-03-14] MEDS: GABAPENTIN 100 MG CAPSULE PO SCH ×3 (07:06→21:16)
[2020-03-14] MEDS: AMOXICILLIN 500 MG CAPSULE (FP) PO SCH ×3 (07:06→21:16)
[2020-03-14] MEDS: NICOTINE POLACRILEX 2 MG GUM BC PRN ×4 (07:06→22:15)
[2020-03-14] MEDS: PRENATAL VITAMINS W/ FOLIC ACID TABLET (FP) PO SCH (09:51)
[2020-03-14] MEDS: NICOTINE 21 MG/24 HOURS TOPICAL PATCH TD SCH (09:51)
[2020-03-14] MEDS: BUPRENORPHINE HCL 8 MG TAB.SUBL SL SCH ×2 (09:51→21:16)
[2020-03-14] MEDS: MAGNESIUM HYDROX 2400MG/30ML ORAL SUSPENSION 30 ML CUP PO PRN (09:53)
[2020-03-14] MEDS: hydrOXYzine PAMOATE 50 MG CAPSULE (FP) PO PRN ×2 (09:53→16:58)
[2020-03-14] MEDS ORDERED: COLLOIDAL OATMEAL 1 BAR EACH TP PRN (13:13)
[2020-03-14] MEDS: SELENIUM SULFIDE 2.5% LOTION 4 OZ. TP SCH (16:01)
[2020-03-14] MEDS: QUEtiapine FUMARATE 100 MG TABLET (FP) PO SCH (21:16)
[2020-03-14] MEDS: THIAMINE HCL 100 MG TABLET (FP) PO SCH (21:16)
[2020-03-14] MEDS: MELATONIN 5 MG TABLETS PO SCH (21:16)
[2020-03-15] MEDS: NICOTINE POLACRILEX 2 MG GUM BC PRN ×2 (06:23→13:25)
[2020-03-15] MEDS: AMOXICILLIN 500 MG CAPSULE (FP) PO SCH ×3 (06:23→21:50)
[2020-03-15] MEDS: GABAPENTIN 100 MG CAPSULE PO SCH ×3 (06:23→21:50)
[2020-03-15] MEDS: hydrOXYzine PAMOATE 50 MG CAPSULE (FP) PO PRN ×2 (06:23→21:50)
[2020-03-15] MEDS: NICOTINE 21 MG/24 HOURS TOPICAL PATCH TD SCH (09:24)
[2020-03-15] MEDS: PRENATAL VITAMINS W/ FOLIC ACID TABLET (FP) PO SCH (09:24)
[2020-03-15] MEDS: BUPRENORPHINE HCL 8 MG TAB.SUBL SL SCH ×2 (09:24→21:50)
[2020-03-15] MEDS: SELENIUM SULFIDE 2.5% LOTION 4 OZ. TP SCH (09:25)
[2020-03-15] MEDS: QUEtiapine FUMARATE 100 MG TABLET (FP) PO SCH (21:50)
[2020-03-15] MEDS: THIAMINE HCL 100 MG TABLET (FP) PO SCH (21:50)
[2020-03-15] MEDS: MELATONIN 5 MG TABLETS PO SCH (21:50)
[2020-03-16] MEDS: GABAPENTIN 100 MG CAPSULE PO SCH ×3 (06:36→21:25)
[2020-03-16] MEDS: AMOXICILLIN 500 MG CAPSULE (FP) PO SCH ×3 (06:36→21:25)
[2020-03-16 06:39] VITALS: BP 114/81; PULSE 83; TEMP 98
[2020-03-16] MEDS: PRENATAL VITAMINS W/ FOLIC ACID TABLET (FP) PO SCH (09:31)
[2020-03-16] MEDS: NICOTINE 21 MG/24 HOURS TOPICAL PATCH TD SCH (09:31)
[2020-03-16] MEDS: BUPRENORPHINE HCL 8 MG TAB.SUBL SL SCH ×2 (09:31→21:25)
[2020-03-16] MEDS: SELENIUM SULFIDE 2.5% LOTION 4 OZ. TP SCH (09:32)
[2020-03-16] MEDS: NICOTINE POLACRILEX 2 MG GUM BC PRN ×4 (09:49→22:44)
[2020-03-16] MEDS: hydrOXYzine PAMOATE 50 MG CAPSULE (FP) PO PRN (16:59)
[2020-03-16] MEDS: QUEtiapine FUMARATE 100 MG TABLET (FP) PO SCH (21:25)
[2020-03-16] MEDS: MELATONIN 5 MG TABLETS PO SCH (21:25)
[2020-03-16] MEDS: THIAMINE HCL 100 MG TABLET (FP) PO SCH (21:25)
[2020-03-17] MEDS: AMOXICILLIN 500 MG CAPSULE (FP) PO SCH (06:35)
[2020-03-17] MEDS: GABAPENTIN 100 MG CAPSULE PO SCH (06:35)
[2020-03-17] MEDS: PRENATAL VITAMINS W/ FOLIC ACID TABLET (FP) PO SCH (09:38)
[2020-03-17] MEDS: hydrOXYzine PAMOATE 50 MG CAPSULE (FP) PO PRN (09:39)
[2020-03-17] MEDS: SELENIUM SULFIDE 2.5% LOTION 4 OZ. TP SCH (09:40)
[2020-03-17] MEDS: BUPRENORPHINE HCL 8 MG TAB.SUBL SL SCH (09:40)
[2020-03-17] MEDS: NICOTINE POLACRILEX 2 MG GUM BC PRN (09:40)
[2020-03-17] MEDS: NICOTINE 21 MG/24 HOURS TOPICAL PATCH TD SCH (09:41)
== END 2020-03-17 11:38 | disposition home or self-care (01) | DRG 772 ==
LOC: YASAS 11:20 → Y5N 16:00
PROVIDERS: ADMIT Allergy & Immunology; ATTEND Allergy & Immunology
PROC: HZ42ZZZ Group Counseling for Substance Abuse Treatment, Cognitive-Behavioral (ICD-10-PCS; principal; 2020-03-11)
DX: F11.20 Opioid dependence, uncomplicated (principal); F12.20 Cannabis dependence, uncomplicated; F17.210 Nicotine dependence, cigarettes, uncomplicated; F41.9 Anxiety disorder, unspecified; F19.24 Other psychoactive substance dependence with psychoactive substance-induced mood disorder; Z91.410 Personal history of adult physical and sexual abuse; Z88.8 Allergy status to other drugs, medicaments and biological substances
CPT/HCPCS: 36415; 80053; 81003; 85027; 86780; C9803; U0003

== ENCOUNTER 2020-03-18 14:18 | Inpatient (IN) | payer OTHER ==
[2020-03-18 16:36] VITALS: BMI 31.4
[2020-03-18] MEDS ORDERED: LOPERAMIDE HCL 2 MG CAPSULE PO PRN (16:46)
[2020-03-18] MEDS ORDERED: MAGNESIUM HYDROX 2400MG/30ML ORAL SUSPENSION 30 ML CUP PO PRN (16:46)
[2020-03-18] MEDS ORDERED: MAG HYDROX/AL HYDROX/SIMETH 30 ML UNIT-DOSE CUP PO PRN (16:46)
[2020-03-18] MEDS ORDERED: P-EPHED 60MG/TRIPROLIDI 2.5MG TABLET PO PRN (16:46)
[2020-03-18] MEDS ORDERED: guaiFENesin 200 MG/10 ML 10 ML UNIT-DOSE CUPS PO PRN (16:46)
[2020-03-18] MEDS ORDERED: MAGNESIUM CITRATE 300 ML BOTTLE PO PRN (16:46)
[2020-03-18] MEDS ORDERED: IBUPROFEN 400 MG TABLET (FP) PO PRN (16:46)
[2020-03-18] MEDS ORDERED: ACETAMINOPHEN 325 MG TABLET (FP) PO PRN (16:46)
[2020-03-18] MEDS: PRENATAL VITAMINS W/ FOLIC ACID TABLET (FP) PO SCH (19:30)
[2020-03-18] MEDS: hydrOXYzine PAMOATE 25 MG CAPSULE (FP) PO SCH ×2 (19:30→22:38)
[2020-03-18] MEDS: NICOTINE 7 MG/24 HOURS TOPICAL PATCH TD SCH (19:31)
[2020-03-18] MEDS: NICOTINE POLACRILEX 2 MG GUM BC PRN (19:31)
[2020-03-18] MEDS ORDERED: THIAMINE HCL 100 MG TABLET (FP) PO SCH (22:00)
[2020-03-18] MEDS ORDERED: MELATONIN 5 MG TABLETS PO SCH (22:00)
[2020-03-18] MEDS ORDERED: PATIENT'S OWN MEDICATION (NON-FORMULARY) (Gabapentin [Gabapentin] 800 MG Tablet) PO SCH (22:00)
[2020-03-18] MEDS: GABAPENTIN 400 MG CAPSULE PO SCH (22:37)
[2020-03-18] MEDS: BUPRENORPHINE HCL 8 MG TAB.SUBL SL SCH (22:38)
[2020-03-18] MEDS: AMOXICILLIN 500 MG CAPSULE (FP) PO SCH (22:38)
[2020-03-19] MEDS: AMOXICILLIN 500 MG CAPSULE (FP) PO SCH ×2 (06:25→13:40)
[2020-03-19] MEDS: GABAPENTIN 400 MG CAPSULE PO SCH ×2 (06:25→13:40)
[2020-03-19] MEDS: hydrOXYzine PAMOATE 25 MG CAPSULE (FP) PO SCH ×3 (06:26→13:41)
[2020-03-19 07:09] VITALS: BP 108/77; PULSE 77; TEMP 97
[2020-03-19] MEDS: NICOTINE POLACRILEX 2 MG GUM BC PRN ×2 (09:01→13:42)
[2020-03-19] MEDS: PRENATAL VITAMINS W/ FOLIC ACID TABLET (FP) PO SCH (10:45)
[2020-03-19] MEDS: NICOTINE 7 MG/24 HOURS TOPICAL PATCH TD SCH (10:45)
[2020-03-19] MEDS ORDERED: PT OWN MED DRAWER 7, Y5N ONE (10:47)
[2020-03-19] MEDS: BUPRENORPHINE HCL 8 MG TAB.SUBL SL SCH (11:46)
[2020-03-19] MEDS ORDERED: SUVOREXANT 10 MG TABLET PO PRN (22:00)
[2020-03-19] MEDS ORDERED: QUEtiapine FUMARATE 100 MG TABLET (FP) PO SCH (22:00)
== END 2020-03-19 16:45 | disposition left against medical advice (07) | DRG 772 ==
LOC: YASAS 14:18 → Y3W 16:48
PROVIDERS: ADMIT Allergy & Immunology; ATTEND Allergy & Immunology
PROC: HZ42ZZZ Group Counseling for Substance Abuse Treatment, Cognitive-Behavioral (ICD-10-PCS; principal; 2020-03-18)
DX: F11.20 Opioid dependence, uncomplicated (principal); F12.20 Cannabis dependence, uncomplicated; F17.210 Nicotine dependence, cigarettes, uncomplicated; F41.9 Anxiety disorder, unspecified; F91.8 Other conduct disorders; F60.9 Personality disorder, unspecified; Z88.8 Allergy status to other drugs, medicaments and biological substances